=== PATIENT | female | born 1985 | race African-American/Black ===

== ENCOUNTER 2024-05-26 17:18 | Emergency (ER) | payer MEDICAID, SELFPAY ==
--- NOTE | ~2024-05-26 | US_ITS ---
EXAMINATION: US OBSTETRICAL ULTRASOUND CLINICAL INFORMATION: Bleeding, back pain. COMPARISON: None available. LMP: 04/05/2024. Gestational age by maternal dates is 7 weeks and 2 days. Estimated date of delivery by maternal dates is 01/10/2025. TECHNIQUE: Ultrasound of the maternal pelvis is performed using transabdominal and transvaginal transducers. Transvaginal imaging is performed due to inadequate visualization transabdominally. M-mode Doppler is also performed. FINDINGS: There is a single intrauterine gestational sac without a visible yolk sac nor pole. The gestational sac measures 0.4 cm corresponding to a sonographic age of 5 weeks. There is an approximately 1 cm subchorionic bleed adjacent to the sac. MATERNAL ADNEXA: The ovaries are normal in morphology. The right ovary measures 4.3 x 1.9 x 1.9 cm; there is a 1.8 x 0.9 x 1.3 cm cystic observation in the right ovary with homogeneous internal avascular debris. The left ovary measures 3.4 x 1.5 x 2 cm. No adnexal mass. Moderate degree of free fluid. US/US OB <= 14 weeks fetus IMPRESSION: Single intrauterine gestational sac with no visible yolk sac or pole. There is a significant discrepancy in between the calculated gestational age by ultrasound and last menstrual period corresponding to 5 weeks and 7 weeks and 2 days respectively. Recommend correlation with the accuracy of the menstrual dates; failure is not excluded. Quantitative hCG measurements and close attention on follow-up is advised. A small subchorionic bleed is visualized. There is also moderate amount of free fluid in the pelvis. A 1.8 cm cystic observation in the right ovary with homogenous avascular internal debris could represent a hemorrhagic cyst or endometrioma. Recommend follow-up with pelvic ultrasound in 4-6 weeks. Electronically signed by: Margaret Mata MD 05/26/2024 09:03 PM HERRERA
--- NOTE | 2024-05-26 17:55 | ED_ITS ---
HPI - Female Genitourinary General Chief complaint: Vaginal Bleeding Stated complaint: , ?water broke 2 months Time Seen by Provider: 05/26/24 21:22 Source: patient and family Mode of arrival: ambulatory Limitations: other (Creole speaking) History of Present Illness ED Provider: Dr. Jennifer Ghosh HPI Narrative: Interpretation done through hospital online- lumber handler service. Patient comes to emergency room complaining of intermittent vaginal bleeding for a few days. Patient states that she is currently a G9, . Patient denies any abdominal discomfort, no cramping. Patient states that when she urinates she sees a bit of blood. Patient denies any dysuria. Patient denies passing blood clots, denies heavy bleeding. Related Data Previous Rx's ?Medication ?Instructions ?Recorded nitrofurantoin 100 mg PO Q12H 7 days #14 caps 05/26/24 monohydrate/macrocrystals 100 mg capsule (Macrobid) vitamins no.42-folic acid 1 tab PO DAILY #90 tabs 05/26/24 1.4 mg chew tablet,IR - DR,biphase fluconazole 150 mg tablet 150 mg PO Q3D 2 doses #2 tabs 05/29/24 Allergies Allergy/AdvReac Type Severity Reaction Status Date / Time No Known Allergies Allergy Verified 05/26/24 18:01 Review of Systems 2 Review of Systems: Constitutional : No Weight loss, No Fever, No Chills, No Night Sweats, No Fatigue, No Malaise ENT/Mouth : No Hearing loss, No Ear Pain, No Nasal Congestion, No Sinus Pain, No Hoarseness, No sore throat, No Rhinorrhea, No Swallowing Difficulty Eyes: No Eye Pain, No Swelling, No Redness, No Foreign Body, No Discharge, No Vision Changes Cardiovascular : No Chest Pain, No SOB, No Dyspnea on Exertion, No Orthopnea, No Edema, No Palpitations Respiratory : No Cough, No Sputum, No Wheezing, No Smoke Exposure, No Dyspnea Gastrointestinal : No Nausea, No Vomiting, No Diarrhea, No Constipation, No abdominal Pain, No Hematochezia, No Melena Genitourinary : Complaining of vaginal bleeding, No Dysuria, No Urinary Frequency, No Hematuria, No Urinary Incontinence, No Urgency, No Flank Pain, No Urinary Flow Changes, No Hesitancy Musculoskeletal : No joint pain, No Myalgias, No Joint Swelling Skin : No Skin Lesions, No rash Neuro : No Weakness, No Numbness, No Paresthesias, No Loss of Consciousness, No Dizziness, No Headache Psych : No Anxiety/Panic, No Depression, No SI/HI/AH/VH, No Social Issues, Heme/Lymph: No Bruising, No Bleeding,No Lymphadenopathy Endocrine : No Polyuria, No Polydipsia, No Temperature Intolerance PMFSH Social History Social History Advance Directives: No Advance Directives Information Provided: Yes Physical Exam 2 Vital Signs: Vital Signs: Last Vital Signs Temp 98.5 F 05/26/24 22:39 Pulse 62 05/26/24 22:39 Resp 18 05/26/24 22:39 BP 134/94 H 05/26/24 22:39 Pulse Ox 100 05/26/24 22:39 O2 Del Method Room Air 05/26/24 22:39 BMI result Body Mass Index 34.3 Const: Other: Appearance: Alert. Oriented X3. No acute distress. Eyes: Pupils equal, round and reactive to light. ENT: Pharynx normal. Neck: Normal inspection. Neck supple. No lymph nodes noted. No crepitus CVS: Normal heart rate and rhythm. Pulses normal. Normal S1 and S2 Respiratory: No respiratory distress. Breath sounds normal. No Wheezing. No rales Abdomen: Soft and nontender. No rigidity. No distention. : Cervix is closed, there is a mild moderate amount of blood mixed with mucus. Skin: Skin warm and dry. Normal skin color. Normal skin turgor. Extremities: No lower extremity edema. No Lacerations. No Rash Neuro: Oriented X 3. No motor deficit. No sensory deficit. Moving all extremities. No slurred speech. CN 2 through 12 grossly intact Psych: calm, cooperative, normal affect Course Course Course Narrative: This is an RME performed by Jennifer England RICE DRIER: Additional HPI, ROS, PE not included below will be deferred to primary provider. Patient is a 39 year old female 2 months , LMP 04/05/24, (1 miscarriage, 1 , 6 living children) earlier today began with bright red/ pink bleeding this AM, intemittent spotting w/o clots - having lower back pain L>R. Has not had any ultrasound evaluation of thus far Plan: Serum labs, urinalysis, hCG, ultrasound Reevaluation(s) Reevaluation #1: 05/29/2024 10:04 --> Patient called and informed of positive yeast swab. Diflucan sent. Medical Decision Making Medical Decision Making MDM Narrative: -my interpretation of labs: Patient's white blood cell count 5.1, hemoglobin shows mild anemia 11.7, hematocrit 36, platelets 230. Chemistry does not show any significant abnormality. LFTs normal, hCG 1683, ABO B positive, urine positive for UTI. -I discussed with the patient that her cervix 6 closed but she has a mild bleed. Discussed with the patient that at this time the ultrasound shows products of conception but not a pole, could be secondary to this being a very early versus failure, she will need an ultrasound in about a week to 2 weeks. However, patient needs to come back in 48 hours to get blood work done to measure beta hCG. -patient states that she has never been on vitamins, even on prior pregnancies. Patient is willing to start them for this . -patient was given information for our OBGYN. -there are no obvious signs of STDs on physical exam. Serologies were sent to the lab , most likely they will be available for patient's OBGYN visit Differential Diagnosis Differential Diagnoses: The differential diagnosis associated with the presentation includes (Ectopic , failure, incomplete , threatened ) Lab Data MDM Lab Attestation statement: I reviewed the patient's lab results. 05/26/24 18:22 05/26/24 18:22 Labs: Lab Results 05/26/24 05/26/24 05/26/24 Range/Units 18:22 21:02 22:10 WBC 5.1 (4.8-10.8) X10*3/uL RBC 4.39 (4.20-5.50) X10*6/uL Hgb 11.7 L (12.0-16.0) g/dl Hct 36.0 L (37.0-47.0) % MCV 82.0 (80.0-98.0) fL MCH 26.7 L (27.0-33.0) pg MCHC 32.5 (31.0-35.0) g/dl RDW 13.1 (11.0-16.0) % Plt Count 230 (160-400) X10*3/uL MPV 9.0 L (9.4-12.3) fL Immature Gran % (Auto) 0.2 (0.0-0.4) % Neut % (Auto) 58.3 (45-73) % Lymph % (Auto) 32.5 (20-40) % [place] % (Auto) 7.6 (2-11) % Eos % (Auto) 0.8 (0-4) % Baso % (Auto) 0.6 (0-2) % Lymph # (Auto) 1.7 (1.2-4.9) X10*3/uL [place] # (Auto) 0.4 (0.1-1.2) X10*3/uL Eos # (Auto) 0.0 (0.0-0.4) X10*3/uL Baso # (Auto) 0.0 (0.0-0.2) X10*3/uL Abs Immat Gran (auto) 0.01 (0.00-0.03) X10*3/uL Absolute Neuts (auto) 3.0 (2.0-8.3) x10*3/uL Absolute Nucleated RBC 0.000 (0.0-0.012) X10*3/uL Nucleated RBC % (auto) 0.0 (0.0-0.2) /100WBC Sodium 137 (135-145) mmol/L Potassium 3.8 (3.3-5.1) mmol/L Chloride 106 (96-108) mmol/L Carbon Dioxide 29 (22-29) mmol/L Anion Gap 6 L (12-20) BUN 8 L (9-16) mg/dL Creatinine 0.72 (0.5-1.4) mg/dL Estim Creat Clear Calc 92.1 Estimated GFR > 60 Random Glucose 103 (60-115) mg/dL Calcium 8.9 (8.4-10.2) mg/dL Total Bilirubin 0.4 (0.0-1.0) mg/dL AST 19 (5-31) U/L ALT 19 (0-31) U/L Alkaline Phosphatase 84 (39-117) U/L Total Protein 7.0 (6.5-8.0) g/dL Albumin 3.8 (3.5-5.0) g/dL Beta HCG, Quant 1683 mIU/mL Urine Color Yellow Urine Appearance Clear Urine pH 6.5 (5.0-9.0) Ur Specific [place] 1.015 (1.005-1.025) Urine Protein Negative (Neg-Trace) mg/dL Urine Glucose (UA) Negative (Negative) mg/dL Urine Ketones Negative (Negative) mg/dL Urine Blood Large (3+) H (Negative) Urine Nitrite Negative (Negative) Ur Leukocyte Esterase Small (1+) H (Negative) Urine RBC >20 H (0-2) /HPF Urine WBC 6-10 H (0-5) /HPF Ur Squamous Epith Cells 0-2 (0-2) /HPF Urine Bacteria None Seen (None Seen) Hyaline Casts 0-2 (0-2) /LPF Chlam trachomat DNA PCR NOT DETECTED (Not Detect.) N.gonorrhoeae DNA (PCR) NOT DETECTED (Not Detect.) T. vaginalis (PCR) NOT DETECTED (Not Detect) Bact Vaginosis (PCR) NEGATIVE (Negative) C. krusei/glabrata (PCR) NOT DETECTED (Not Detect) Sonia group (PCR) DETECTED A (Not Detect) Blood Type B Positive Independent Interpretation I performed an independent interpretation of an: Ultrasound Radiology Impression Discussion of test interpretation with radiology: I have reviewed the radiologist's reading. Radiologist Impression: MPRESSION: Single intrauterine gestational sac with no visible yolk sac or pole. There is a significant discrepancy in between the calculated gestational age by ultrasound and last menstrual period corresponding to 5 weeks and 7 weeks and 2 days respectively. Recommend correlation with the accuracy of the menstrual dates; failure is not excluded. Quantitative hCG measurements and close attention on follow-up is advised. A small subchorionic bleed is visualized. There is also moderate amount of free fluid in the pelvis. A 1.8 cm cystic observation in the right ovary with homogenous avascular internal debris could represent a hemorrhagic cyst or endometrioma. Recommend follow-up with pelvic ultrasound in 4-6 weeks. Independent Historian Clinical information obtained from an independent historian. History obtained from or confirmed by: Spouse Critical Care Time Critical Care Time Critical Care Time: Yes Total Critical Care Time: 45 Attestation: I have personally provided critical care time. Time includes review of lab data, radiology results, discussion with consultants, and monitoring for potential decompensation. Intervention performed as documented. Discharge Plan Discharge Clinical Impression: , threatened, UTI (urinary tract infection), Vaginal yeast infection Patient Disposition: Home, Self-Care Instructions: Threatened Miscarriage (ED), Yeast Infection (ED), Urinary Tract Infection in (ED) Additional Instructions: If you experience any heavy vaginal bleeding, significant abdominal pain or cramping, please return to the emergency room. Please return on Wednesday morning for blood work, please go through the main entrance and they will show you with the lab is. Please make sure to call the OBGYN office to schedule an appointment. Her medications were sent to [facility] in [address] [place] [address]. Prescriptions: New nitrofurantoin monohyd/m-cryst [Macrobid] 100 mg capsule 100 mg PO Q12H 7 Days Qty: 14 0RF Rx Instructions: must administer with a meal/food comb no.42-folic acid 1.4 mg tablet,chew,IR - DR,biphase 1 tab PO DAILY Qty: 90 1RF fluconazole 150 mg tablet 150 mg PO Q3D Qty: 2 0RF Interventions: ED Discharge Assessment Last Done: 05/26/24 22:39 Discharge Date/Time: 05/26/24 22:39 Print Language: Benjy Curran
[2024-05-26 17:56] VITALS: BP 127/73; PULSE 70; RESP 16; TEMP 36.4; O2SAT 100; BMI 34.3
[2024-05-26 18:27] LABS: MANUAL DIFF FLAG NO
[2024-05-26 18:35] LABS: Basophils Percent Auto 0.6 % (0-2); Eosinophils Percent Auto 0.8 % (0-4); Hemoglobin 11.7 g/dl (12.0-16.0); Imm Gran Abs Auto 0.01 X10*3/uL (0.00-0.03); Imm Gran Pct Auto 0.2 % (0.0-0.4); Lymphocytes Absolute Auto 1.7 X10*3/uL (1.2-4.9); Lymphocytes Percent Auto 32.5 % (20-40); Mean Corpuscular HGB Conc 32.5 g/dl (31.0-35.0); Mean Corpuscular Hemoglobin 26.7 pg (27.0-33.0); Monocytes Absolute Auto 0.4 X10*3/uL (0.1-1.2); Monocytes Percent Auto 7.6 % (2-11); Neutrophils Percent Auto 58.3 % (45-73); Platelet Count 230 X10*3/uL (160-400); Red Blood Count 4.39 X10*6/uL (4.20-5.50); Red Cell Distribution Width 13.1 % (11.0-16.0); White Blood Count 5.1 X10*3/uL (4.8-10.8)
--- NOTE | 2024-05-26 18:49 | PC.NURSE ---
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
[2024-05-26 18:56] LABS: Alanine Aminotransferase 19 U/L (0-31); Albumin Level 3.8 g/dL (3.5-5.0); Alkaline Phosphatase 84 U/L (39-117); Anion Gap 6 (12-20); Aspartate Amino Transferase 19 U/L (5-31); Bilirubin Total 0.4 mg/dL (0.0-1.0); Blood Urea Nitrogen 8 mg/dL (9-16); Calcium 8.9 mg/dL (8.4-10.2); Carbon Dioxide 29 mmol/L (22-29); Chloride 106 mmol/L (96-108); Creatinine Clr Calc Pharmacy 92.1; Estimated Glomerular Filt Rate > 60; Glucose Random 103 mg/dL (60-115); Potassium 3.8 mmol/L (3.3-5.1); Sodium 137 mmol/L (135-145)
[2024-05-26 18:57] LABS: HCG Quantitative 1683 mIU/mL
[2024-05-26 21:17] LABS: Appearance Urine Clear; Color Urine Yellow; Glucose Urine UA Negative (Negative); Leukocyte Esterase Urine Small (1+) (Negative); Nitrite Urine Negative (Negative); PH 6.5 (5.0-9.0); Specific Gravity - Urine 1.015 (1.005-1.025); UMIC TRIGGER UACC YES; Urine Blood Large (3+) (Negative); Urine Ketones Negative (Negative); Urine Protein Negative (Neg-Trace)
[2024-05-26 21:32] LABS: Bacteria Urine None Seen (None Seen); Hyaline Casts Urine 0-2 /LPF (0-2); RBC Urine >20 /HPF (0-2); Squamous Epithelial Cell Urine 0-2 /HPF (0-2); UACC Culture Trigger YES
[2024-05-26 22:38] VITALS: BP 134/94; PULSE 62; RESP 18; TEMP 36.9; O2SAT 100
[2024-05-26 22:39] VITALS: BP 134/94; PULSE 62; RESP 18; TEMP 36.9; O2SAT 100
[2024-05-27 12:24] LABS: Bacterial Vaginosis PCR NEGATIVE (Negative); Candida Group PCR DETECTED (Not Detect); Candida glab krusei PCR NOT DETECTED (Not Detect); Trichomonas vaginalis PCR NOT DETECTED (Not Detect)
[2024-05-27 13:42] LABS: CT PCR NOT DETECTED (Not Detect.); NG PCR NOT DETECTED (Not Detect.)
== END 2024-05-26 22:39 | disposition home or self-care (01) ==
PROVIDERS: Nurse Practitioner Family; Emergency Provider Emergency Medicine
DX: O20.0 Threatened abortion (principal); O98.811 Other maternal infectious and parasitic diseases complicating pregnancy, first trimester; O23.41 Unspecified infection of urinary tract in pregnancy, first trimester; N39.0 Urinary tract infection, site not specified; O99.011 Anemia complicating pregnancy, first trimester
CPT/HCPCS: 0352U; 36415; 76801; 80053; 81001; 84702; 85025; 86900; 86901; 87086; 87147; 87491; 87591; 99283; 99284

== ENCOUNTER 2024-06-02 12:25 | Emergency (ER) | payer MEDICAID, SELFPAY ==
--- NOTE | ~2024-06-02 | US_ITS ---
EXAMINATION: US OBSTETRICAL ULTRASOUND CLINICAL INFORMATION: Vaginal bleeding COMPARISON: 05/26/2024 TECHNIQUE: Transabdominal endovaginal pelvic ultrasound FINDINGS: Previously noted intrauterine is no longer visualized. No evidence of retained products of conception or any focal lesion. Both ovaries appear normal unchanged from previous. Small amount of free fluid in the cul-de-sac. The uterus measures 8.9 x 5.1 x 6.4 cm. US/US OB pelvic and transvaginal IMPRESSION: No evidence for any viable . Findings consistent with missed AB. Electronically signed by: Colin Dukes MD 06/02/2024 06:29 PM EST
--- NOTE | 2024-06-02 12:39 | ED.GENADULT ---
HPI - General Adult General Chief complaint: Vaginal Bleeding Stated complaint: vaginal bleeding quest Time Seen by Provider: 06/02/24 13:02 Source: patient, RN notes reviewed and old records reviewed Mode of arrival: ambulatory History of Present Illness ED Provider: Lucila Waters PA-C HPI narrative: 39-year-old female, Estonian Creole speaking, (1 miscarriage, 1 , 6 living children), presenting to the ED complaining of persistent/ worsening bright red vaginal bleeding with clots x5 days. Patient was evaluated in our ED on 05/26/2024 for similar symptoms, had labs showing hCG of 1683, and ultrasound showing early vs failure. patient was supposed to have outpatient HCG 05/29 however did not have a ride to facility. Denies pain, dysuria, nausea/vomiting. Patient is B positive Related Data Previous Rx's ?Medication ?Instructions ?Recorded nitrofurantoin 100 mg PO Q12H 7 days #14 caps 05/26/24 monohydrate/macrocrystals 100 mg capsule (Macrobid) vitamins no.42-folic acid 1 tab PO DAILY #90 tabs 05/26/24 1.4 mg chew tablet,IR - DR,biphase fluconazole 150 mg tablet 150 mg PO Q3D 2 doses #2 tabs 05/29/24 Allergies Allergy/AdvReac Type Severity Reaction Status Date / Time No Known Allergies Allergy Verified 06/02/24 12:47 Review of Systems Review of Systems: Yes all other systems are reviewed and are negative Constitutional: Constitutional: Reports as per [facility] Past Medical History Attestation statement: The following information was validated with the patient. Source: old records reviewed Social History Social History Smoked in Last 30 Days: No Use of substances other than those prescribed or required for medical reasons: No Advance Directives: No Advance Directives Information Provided: Yes Do you have a plan to hurt others: No Plan Physical Exam ED Vital Signs: Vital Signs - 24 hr 06/02/24 12:44 06/02/24 14:17 06/02/24 16:46 Temperature 98.3 F 98.5 F 98 F Pulse Rate 68 58 55 Respiratory Rate 16 16 16 Blood Pressure 120/73 104/72 122/71 Pulse Oximetry 100 100 99 Oxygen Delivery Method Room Air Room Air Room Air BMI result Body Mass Index 28.8 Const General: cooperative, healthy appearing and no acute distress Orientation/consciousness: patient oriented x3 Limitations: no limitations HENMT Head: Yes normal to inspection and Yes atraumatic Ears: hearing grossly normal bilaterally General nose exam: Normal external nose present Face and sinus: Yes normal facial exam Eyes General: appearance normal, both eyes and all related structures EOM: EOMs intact bilaterally Neck Neck: Yes normal visual inspection and Yes no meningeal signs Resp Effort & Inspection: normal respiratory effort and no respiratory distress Auscultation: clear to auscultation bilaterally Cardio Rate: regular rate Heart sounds: S1 normal heart sound present and S2 normal heart sound present GI Inspection: Yes normal to inspection Palpation (GI): Soft to palpation, nontender, no guarding and not rigid Skin Rashes: no rashes Wounds: no wounds Neuro General: patient oriented x3, tone normal and no meningeal signs Cranial nerves: Yes CN's II-XII intact bilaterally Gait exam (Neuro): Normal gait present Extrem General: Yes normal to inspection Course Course Course Narrative: RME, this is a rapid medical exam performed by Osman Sr please refer to primary provider for complete H&P- 39 year old female presents for evaluation of vaginal bleeding in . She was seen here on 05/26/24 with an HCG of 1683, and there was no pole on ultrasound. There was concern for threatened vs missed . She was given outpatient order form for serum hcg and repeat ultrasound for 05/29/24 but was unable to return at that time. She still endorses vaginal bleeding but denies pain. She is blood type A+. She is G9, P6, A2 - leukopenic to 3.2. H/H stable. -1323-- H/H with drop from 1683 (on 05/26) to 759 today (06/02) - UA with blood, not infected US OB pelvic and transvaginal IMPRESSION: No evidence for any viable . Findings consistent with missed AB. - Dr. Xie consulted > on pelvic exam clots/ products conception noted coming from cervix. No active bleeding. Removed without complication by OBGYN Dr. Xie. No masses or tenderness. >> Exam consistent with complete Results discussed with patient with patient Creole in house counsel incomplete precautions including pelvic cramping/ bleeding or fever to return to the ED immediately. Patient will be contacted by madyson Xie's office on Wednesday to arrange for follow-up. Discussed worrisome signs and symptoms and strict return precautions, and when to return to the emergency department. They verbalized understanding and feel safe for discharge at this time. Medical Decision Making Medical Decision Making [facility] Narrative: 39-year-old female, Estonian Creole speaking, (1 miscarriage, 1 , 6 living children), presenting to the ED complaining of persistent/ worsening bright red vaginal bleeding with clots x5 days. On exam vital signs stable, NAD, nontoxic appearing, abdomen soft/nontender, on pelvic exam Concern for early vs failure vs threatened or incomplete /missed vs ectopic . Lower suspicion for ovarian torsion, STI, TOA Plan: Labs, UA, ultrasound, re-evaluate Please refer to course for remaining clinical decision making, interpretation of labs/imaging results, and discussions with consultants and/or family members. Differential Diagnosis Differential Diagnoses: The differential diagnosis associated with the presentation includes As above Admission/Observation Consideration of admission/observation: Escalation of care including admission/observation considered Consult Healthcare Provider Management of the patient was discussed with: Generator Operator Straight Bevel Gear (OBGYN Dr. Xie) Lab Data [facility] Lab Attestation statement: I reviewed the patient's lab results. 06/02/24 12:48 06/02/24 12:48 Labs: Lab Results 06/02/24 06/02/24 Range/Units 12:48 13:05 WBC 3.2 L (4.8-10.8) X10*3/uL RBC 4.32 (4.20-5.50) X10*6/uL Hgb 11.5 L (12.0-16.0) g/dl Hct 35.8 L (37.0-47.0) % MCV 82.9 (80.0-98.0) fL MCH 26.6 L (27.0-33.0) pg MCHC 32.1 (31.0-35.0) g/dl RDW 13.1 (11.0-16.0) % Plt Count 231 (160-400) X10*3/uL MPV 9.0 L (9.4-12.3) fL Immature Gran % (Auto) 0.3 (0.0-0.4) % Neut % (Auto) 45.5 (45-73) % Lymph % (Auto) 45.3 H (20-40) % [place] % (Auto) 7.1 (2-11) % Eos % (Auto) 0.9 (0-4) % Baso % (Auto) 0.9 (0-2) % Lymph # (Auto) 1.5 (1.2-4.9) X10*3/uL [place] # (Auto) 0.2 (0.1-1.2) X10*3/uL Eos # (Auto) 0.0 (0.0-0.4) X10*3/uL Baso # (Auto) 0.0 (0.0-0.2) X10*3/uL Abs Immat Gran (auto) 0.01 (0.00-0.03) X10*3/uL Absolute Neuts (auto) 1.5 L (2.0-8.3) x10*3/uL Absolute Nucleated RBC 0.000 (0.0-0.012) X10*3/uL Nucleated RBC % (auto) 0.0 (0.0-0.2) /100WBC Sodium 142 (135-145) mmol/L Potassium 3.6 (3.3-5.1) mmol/L Chloride 109 H (96-108) mmol/L Carbon Dioxide 28 (22-29) mmol/L Anion Gap 9 L (12-20) BUN 7 L (9-16) mg/dL Creatinine 0.67 (0.5-1.4) mg/dL Estim Creat Clear Calc 110.4 Estimated GFR > 60 Random Glucose 89 (60-115) mg/dL Calcium 8.4 (8.4-10.2) mg/dL Total Bilirubin 0.8 (0.0-1.0) mg/dL AST 21 (5-31) U/L ALT 12 (0-31) U/L Alkaline Phosphatase 76 (39-117) U/L Total Protein 6.6 (6.5-8.0) g/dL Albumin 3.7 (3.5-5.0) g/dL Lipase 27 (8-78) U/L Beta HCG, Quant 759 mIU/mL Urine Color Yellow Urine Appearance Clear Urine pH 7.0 (5.0-9.0) Ur Specific [place] 1.015 (1.005-1.025) Urine Protein Negative (Neg-Trace) mg/dL Urine Glucose (UA) Negative (Negative) mg/dL Urine Ketones Negative (Negative) mg/dL Urine Blood Large (3+) H (Negative) Urine Nitrite Negative (Negative) Ur Leukocyte Esterase Trace H (Negative) Urine RBC >20 H (0-2) /HPF Urine WBC 0-5 (0-5) /HPF Ur Squamous Epith Cells 3-5 (0-2) /HPF Urine Bacteria None Seen (None Seen) Hyaline Casts 0-2 (0-2) /LPF Independent Interpretation I performed an independent interpretation of an: Ultrasound Radiology Impression Discussion of test interpretation with radiology: I have reviewed the radiologist's reading. External Record Review External record reviewed: Inpatient record, Office record, Outpatient record, Prior outpatient labs, Prior outpatient radiology, Primary care record and Outside ED record Tests considered The following testing was considered but not selected: As above Chronic Conditions Patient?s care impacted by: Other Social Determinants Patient?s care significantly limited by Social Determinants of Health including: Other Social Determinant of Health Discharge Plan Discharge Clinical Impression: Complete Patient Disposition: Home, Self-Care Instructions: Miscarriage (ED) Additional Instructions: your hCG dropped today ultrasound is consistent with a missed , there is no viable YOU NEED TO FOLLOW-UP IN OBGYN OFFICE ON WEDNESDAY, THEY WILL CONTACT YOU. YOU WILL NEED REPEAT BLOOD WORK TO MONITOR LEVELS UNTIL THEY ARE 0. If you have any abdominal /pelvic cramping, pain, bleeding, or fever return to the ED immediately Prescriptions: No Action nitrofurantoin monohyd/m-cryst [Macrobid] 100 mg capsule 100 mg PO Q12H 7 Days Qty: 14 0RF Rx Instructions: must administer with a meal/food comb no.42-folic acid 1.4 mg tablet,chew,IR - DR,biphase 1 tab PO DAILY Qty: 90 1RF fluconazole 150 mg tablet 150 mg PO Q3D Qty: 2 0RF Referrals: [facility] [place] Women's Services [Provider Group] - 2 days Print Language: Benjy Curran
[2024-06-02 12:44] VITALS: BP 120/73; PULSE 68; RESP 16; TEMP 36.8; O2SAT 100; BMI 28.8
[2024-06-02 12:51] LABS: MANUAL DIFF FLAG NO
--- NOTE | 2024-06-02 12:56 | MHC.EDTECH ---
Urine cup and wipes provided to patient with instructions on clean catch urine. Patient aware to provide sample as soon as possible.
[2024-06-02 12:59] LABS: Basophils Percent Auto 0.9 % (0-2); Eosinophils Percent Auto 0.9 % (0-4); Hematocrit 35.8 % (37.0-47.0); Hemoglobin 11.5 g/dl (12.0-16.0); Imm Gran Abs Auto 0.01 X10*3/uL (0.00-0.03); Imm Gran Pct Auto 0.3 % (0.0-0.4); Lymphocytes Absolute Auto 1.5 X10*3/uL (1.2-4.9); Lymphocytes Percent Auto 45.3 % (20-40); Mean Corpuscular HGB Conc 32.1 g/dl (31.0-35.0); Mean Corpuscular Hemoglobin 26.6 pg (27.0-33.0); Mean Corpuscular Volume 82.9 fL (80.0-98.0); Monocytes Absolute Auto 0.2 X10*3/uL (0.1-1.2); Monocytes Percent Auto 7.1 % (2-11); Neutrophils Absolute Auto 1.5 x10*3/uL (2.0-8.3); Neutrophils Percent Auto 45.5 % (45-73); Platelet Count 231 X10*3/uL (160-400); Red Blood Count 4.32 X10*6/uL (4.20-5.50); Red Cell Distribution Width 13.1 % (11.0-16.0); White Blood Count 3.2 X10*3/uL (4.8-10.8)
[2024-06-02 13:16] LABS: Appearance Urine Clear; Color Urine Yellow; Glucose Urine UA Negative (Negative); Leukocyte Esterase Urine Trace (Negative); Nitrite Urine Negative (Negative); Specific Gravity - Urine 1.015 (1.005-1.025); UMIC TRIGGER UACC YES; Urine Blood Large (3+) (Negative); Urine Ketones Negative (Negative); Urine Protein Negative (Neg-Trace)
[2024-06-02 13:17] LABS: Alanine Aminotransferase 12 U/L (0-31); Albumin Level 3.7 g/dL (3.5-5.0); Alkaline Phosphatase 76 U/L (39-117); Anion Gap 9 (12-20); Aspartate Amino Transferase 21 U/L (5-31); Bilirubin Total 0.8 mg/dL (0.0-1.0); Blood Urea Nitrogen 7 mg/dL (9-16); Calcium 8.4 mg/dL (8.4-10.2); Carbon Dioxide 28 mmol/L (22-29); Chloride 109 mmol/L (96-108); Creatinine Clr Calc Pharmacy 110.4; Estimated Glomerular Filt Rate > 60; Glucose Random 89 mg/dL (60-115); HCG Quantitative 759 mIU/mL; Lipase 27 U/L (8-78); Potassium 3.6 mmol/L (3.3-5.1); Sodium 142 mmol/L (135-145); Total Protein 6.6 g/dL (6.5-8.0)
[2024-06-02 13:21] LABS: Bacteria Urine None Seen (None Seen); Hyaline Casts Urine 0-2 /LPF (0-2); RBC Urine >20 /HPF (0-2); WBC Urine 0-5 /HPF (0-5)
--- NOTE | 2024-06-02 13:28 | PC.NURSE ---
pt states that she has been passing red blood clots. She says they stopped this morning but then resumed. US ordered
[2024-06-02 14:17] VITALS: BP 104/72; PULSE 58; RESP 16; TEMP 36.9; O2SAT 100
[2024-06-02 16:46] VITALS: BP 122/71; PULSE 55; RESP 16; TEMP 36.6; O2SAT 99
--- NOTE | 2024-06-02 18:13 | P.CONOB_ITS ---
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 Patient was evaluated in our ED on 05/26/2024 for similar symptoms, had labs showing hCG of 1683, and ultrasound showing early vs failure. patient was supposed to have outpatient HCG 05/29 however did not have a ride to facility. in the emergency room today hCG was repeated was down to 759 H&H =11.5/35.8 blood type B positive cc:: CC: OB [facility] Social History Social History Smoked in Last 30 Days: No Use of substances other than those prescribed or required for medical reasons: No Advance Directives: No Advance Directives Information Provided: Yes Do you have a plan to hurt others: No Plan Meds Allergies Allergy/AdvReac Type Severity Reaction Status Date / Time No Known Allergies Allergy Verified 06/02/24 12:47 VACUUM METALIZING SUPERVISOR Physical Exam Vitals Vital signs: Temp Pulse Resp BP Pulse Ox O2 Del Method 98 F 55 16 122/71 99 Room Air 06/02/24 16:46 06/02/24 16:46 06/02/24 16:46 06/02/24 16:46 06/02/24 16:46 06/02/24 16:46 BMI result Body Mass Index 28.8 Female Genitalia (Pelvic) Vagina: Nontender Uterus: Normal size Adnexa/Parametria: Adnexal Tenderness: None, Adnexal Mass: None, Parametrial Tenderness: None and Parametrial Mass: None Additional Comments: tissues protruding through the cervix pulled out with a ring forceps, no bleeding and no pelvic cramping followed VACUUM METALIZING SUPERVISOR - Results Labs 06/02/24 12:48 06/02/24 12:48 Labs: Short CBC 06/02/24 Range/Units 12:48 WBC 3.2 L (4.8-10.8) X10*3/uL Hgb 11.5 L (12.0-16.0) g/dl Hct 35.8 L (37.0-47.0) % Plt Count 231 (160-400) X10*3/uL BMP 11/22/24 12:48 Sodium 142 Potassium 3.6 Chloride 109 H Carbon Dioxide 28 BUN 7 L Creatinine 0.67 Calcium 8.4 Liver Function 06/02/24 Range/Units 12:48 Total Bilirubin 0.8 (0.0-1.0) mg/dL AST 21 (5-31) U/L ALT 12 (0-31) U/L Alkaline Phosphatase 76 (39-117) U/L Albumin 3.7 (3.5-5.0) g/dL Urine 06/02/24 Range/Units 13:05 Urine Color Yellow Urine Appearance Clear Urine pH 7.0 (5.0-9.0) Ur Specific [place] 1.015 (1.005-1.025) Urine Protein Negative (Neg-Trace) mg/dL Urine Glucose (UA) Negative (Negative) mg/dL Imaging US - abdomen: Radiologist's impression: ITS Impressions Pelvic/Transvag US 06/02/24 14:20 IMPRESSION: No evidence for any viable . Findings consistent with missed AB. Electronically signed by: Colin Dukes MD 06/02/2024 06:29 PM [facility] [place] Assessment and Plan (1) Complete : Status: Acute GC/CT was BV panel and Trichomonas collected, tissues from the cervical os sent to pathology. Discussed with the patient pelvic exam finding, her clinical situation pointing towards complete . Signs and symptoms of incomplete were discussed with the patient, instruction given to the patient to come back to the emergency room in case of pelvic cramping and or bleeding, fever above 100.4 And to follow-up in the office within 2 days will repeat hCG to be repeated till down to 0, non levels. All questions answered, the patient verbalized understanding
[2024-06-02 18:36] VITALS: BP 130/85; PULSE 67; RESP 16; TEMP 36.8; O2SAT 100
--- NOTE | 2024-06-02 18:40 | PC.NURSE ---
pelvic exam perform by Lucila VALENTE and Dr. Xie with this RN.products of conception were removed and ordered to be sent to the lab. Dr. Xie explained findings and reasons to seek prompt medical attention and well as importance of follow up in his office, patient states she understands. per Dr. Xie no further bleeding. patient tolerated exam well. Estonian Creole motor vehicle parts interpreter was utilized during exam and for all instructions. friend present with patient
--- NOTE | 2024-06-02 19:52 | PC.NURSE ---
products of conception were labeled and brought to lab by this RN and handed directly to staff.
[2024-06-02 19:54] VITALS: BP 109/83; PULSE 74; RESP 16; TEMP 36.8; O2SAT 98
[2024-06-03 05:42] LABS: CT PCR NOT DETECTED (Not Detect.); NG PCR NOT DETECTED (Not Detect.)
[2024-06-03 12:42] LABS: Bacterial Vaginosis PCR NEGATIVE (Negative); Candida Group PCR NOT DETECTED (Not Detect); Candida glab krusei PCR NOT DETECTED (Not Detect); Trichomonas vaginalis PCR NOT DETECTED (Not Detect)
== END 2024-06-02 19:55 | disposition home or self-care (01) ==
PROVIDERS: Obstetrics & Gynecology; Physician Assistant; Emergency Provider Emergency Medicine
DX: O03.9 Complete or unspecified spontaneous abortion without complication (principal)
CPT/HCPCS: 0352U; 36415; 76801; 76817; 80053; 81001; 83690; 84702; 85025; 87491; 87591; 88305; 99284

== ENCOUNTER → 2024-06-02 13:21 | Outpatient (BNV) | payer MEDICAID, SELFPAY | PROVIDERS: Emergency Provider Emergency Medicine; Visit Provider Obstetrics & Gynecology | DX: O03.9 Complete or unspecified spontaneous abortion without complication (principal) | CPT/HCPCS: 99283 ==

== ENCOUNTER 2024-06-06 09:07 | Outpatient (REF) | payer MEDICAID, SELFPAY ==
[2024-06-06 11:19] LABS: HCG Quantitative 234 mIU/mL
== END 2024-06-06 09:08 | disposition home or self-care (01) ==
LOC: HO.LAB 09:07
PROVIDERS: Visit Provider Obstetrics & Gynecology
DX: O03.9 Complete or unspecified spontaneous abortion without complication (principal)
CPT/HCPCS: 36415; 84702; 99212

== ENCOUNTER 2024-06-06 10:29 | Outpatient (AMB) | payer MEDICAID, SELFPAY ==
--- NOTE | 2024-06-06 10:33 | A.OFFVIS_ITS ---
Intake Visit Reasons: HCG follow up Clip Loading Machine Feeder Required: Yes Clip Loading Machine Feeder Language: Benjy Curran Clip Loading Machine Feeder Services: Clip Loading Machine Feeder Present ([employer]) Clip Loading Machine Feeder Name: Salvador # [id number] Allergies No Known Allergies Allergy (Verified 06/02/24 12:47) HPI Comments Details: The patient is presenting for ED follow-up. The patient went to the emergency room 4 days ago with heavy vaginal bleeding associated with passage of blood clots and pelvic cramping. She was evaluated in the ED on 05/26/2024 for similar symptoms, had labs showing hCG of 1683, and ultrasound showing early vs failure. The patient was supposed to have outpatient HCG 05/29 however did not have a ride to facility. In the emergency room on 06/02 hCG was repeated was down to 759 On pelvic exam tissues was protruding out of the cervix, were pulled out using ring forceps. The patient did well afterwards without any pelvic cramping and or bleeding. Since then the patient has been doing well with no additional bleeding or cramping. HCG done [id number] Blood type B positive GC/CT negative BV panel , trich neg path is still pending Review of Systems Const All systems reviewed & are unremarkable except as noted in HPI and below Reports as per HPI and Reports no additional complaints GI Reports no additional complaints Reports no additional complaints Physical Exam GI Palpation (GI): Soft to palpation and nontender Assessment & Plan Assessment & Plan (1) Complete : Code(s): O03.9 - Complete or unspecified spontaneous without complication Category: Medical Plan: Discussed with the patient's signs and symptoms of incomplete , instructions given the patient to call in case of pelvic cramping and or bleeding, fever above 100.4. HCG to be repeated in 1 week (order placed) and follow it down to non level. Instructions given the patient to have hCG drawn and to schedule hCG follow-up appointment Offered different method of control but the patient declined at the moment. All questions answered, the patient verbalized understanding Orders: Orders HCG Quantitative Today O03.9 - Complete or unspecified spontaneous without complication HCG Quantitative 1 Week O03.9 - Complete or unspecified spontaneous wi thout complication Coding Level of Care Code Est Pt Level 3 (06251) Diagnoses Complete O03.9
== END 2024-06-06 11:32 | disposition home or self-care (01) ==
LOC: HO.HWS 10:29
PROVIDERS: Visit Provider Obstetrics & Gynecology
DX: O03.9 Complete or unspecified spontaneous abortion without complication (principal)
CPT/HCPCS: 99213

== ENCOUNTER 2024-06-13 09:11 | Outpatient (REF) | payer MEDICAID, SELFPAY ==
[2024-06-13 10:01] LABS: HCG Quantitative 10 mIU/mL
== END 2024-06-13 09:12 | disposition home or self-care (01) ==
LOC: HO.LAB 09:11
PROVIDERS: Visit Provider Obstetrics & Gynecology
DX: O03.9 Complete or unspecified spontaneous abortion without complication (principal)
CPT/HCPCS: 36415; 84702; 99212

== ENCOUNTER 2024-06-13 10:34 | Outpatient (AMB) | payer MEDICAID, SELFPAY ==
--- NOTE | 2024-06-13 10:50 | MHC.OFFVIS ---
Vital Signs 06/13/24 10:55 Height 5 ft 1 in Weight 170 lb BMI 32.1 BP 118/70 Intake Visit Reasons: HCG follow up Disk And Tape Machine Tender Required: Yes Disk And Tape Machine Tender Language: [place]oleman Curran Disk And Tape Machine Tender Services: Disk And Tape Machine Tender Present ([employer]) Disk And Tape Machine Tender Name: Maxx #[id number] Information Interpreted: non-clinical & clinical Accompanied by: Self / Same As Patient Allergies No Known Allergies Allergy (Verified 06/13/24 10:59) HPI Comments Details: Presenting for follow-up with no complaints no vaginal bleeding pelvic cramping or any other concerns. HCG done today's down to 10 from 234 Review of Systems Const All systems reviewed & are unremarkable except as noted in HPI and below Reports as per HPI and Reports no additional complaints GI Reports no additional complaints Reports no additional complaints Assessment & Plan Assessment & Plan (1) Complete : Code(s): O03.9 - Complete or unspecified spontaneous without complication Category: Medical Plan: Will repeat hCG in 1-2 weeks to follow-up down to 0. Signs and symptoms of incomplete were discussed with the patient. Instructions given the patient to call in case of pelvic cramping and or heavy vaginal bleeding and to schedule a follow-up apt in 2cwks and an annual exam appointment in few weeks. All questions answered, the patient verbalized understanding. Orders: Orders HCG Quantitative Today O03.9 - Complete or unspecified spontaneous without complication HCG Quantitative 2 Weeks O03.9 - Complete or unspecified spontaneous without complication Medications: Discontinued nitrofurantoin monohyd/m-cryst 100 mg (Macrobid) must administer with a meal/food Discontinued Reason: Patient Completed Course 100 mg PO Q12H 7 days 14 caps 0RF fluconazole Discontinued Reason: Patient Completed Course 150 mg PO Q3D 2 tabs 0RF Coding Level of Care Code Est Pt Level 3 (40547) Diagnoses Complete O03.9
[2024-06-13 10:55] VITALS: BP 118/70; BMI 32.1
== END 2024-06-13 11:18 | disposition home or self-care (01) ==
LOC: HO.HWS 10:34
PROVIDERS: Visit Provider Obstetrics & Gynecology
DX: O03.9 Complete or unspecified spontaneous abortion without complication (principal)
CPT/HCPCS: 99213

== ENCOUNTER 2024-06-28 09:50 | Outpatient (REF) | payer MEDICAID, SELFPAY ==
[2024-06-28 11:31] LABS: HCG Quantitative < 2 mIU/mL
== END 2024-06-28 09:51 | disposition home or self-care (01) ==
LOC: HO.LAB 09:50
PROVIDERS: Visit Provider Obstetrics & Gynecology
DX: O03.9 Complete or unspecified spontaneous abortion without complication (principal)
CPT/HCPCS: 36415; 84702; 99212

== ENCOUNTER 2024-06-28 10:34 | Outpatient (AMB) | payer OTHER, SELFPAY ==
--- NOTE | 2024-06-28 11:21 | A.OFFVIS_ITS ---
Intake Visit Reasons: HCG follow up Operations Vice President Required: Yes Operations Vice President Language: Sloveniancoleman Curran Operations Vice President Services: Operations Vice President Present ([employer] ) Operations Vice President Name: Nita [id number] Information Interpreted: clinical only Accompanied by: Self / Same As Patient Allergies No Known Allergies Allergy (Verified 06/28/24 11:28) HPI Comments Details: Presenting for follow-up with no complaints no vaginal bleeding pelvic cramping or any other concerns. HCG done today's down to <2 Review of Systems Const All systems reviewed & are unremarkable except as noted in HPI and below Reports as per HPI and Reports no additional complaints GI Reports no additional complaints Reports no additional complaints Assessment & Plan Assessment & Plan (1) Complete : Code(s): O03.9 - Complete or unspecified spontaneous without complication Category: Medical Plan: Discussed with the patient the results hCG less than 2. Instructions given the patient to schedule annual exam within few months. All questions answered, the patient verbalized understanding and agreed with the plan Coding Level of Care Code Est Pt Level 3 (22787) Diagnoses Complete O03.9
== END 2024-06-28 11:54 | disposition home or self-care (01) ==
LOC: HO.HWS 10:34
PROVIDERS: Visit Provider Obstetrics & Gynecology
DX: O03.9 Complete or unspecified spontaneous abortion without complication (principal)
CPT/HCPCS: 99213

== ENCOUNTER 2024-11-29 11:16 | Outpatient (REF) | payer MEDICAID, SELFPAY ==
[2024-12-06 07:53] LABS: HPV Genotype 16 Negative (Negative); HPV Genotype 18 Negative (Negative); HPV High Risk Negative (Negative)
== END 2024-11-29 11:17 | disposition home or self-care (01) ==
LOC: HO.LNP 11:16
PROVIDERS: Visit Provider Obstetrics & Gynecology
DX: Z01.419 Encounter for gynecological examination (general) (routine) without abnormal findings (principal)
CPT/HCPCS: 87626; 88175

== ENCOUNTER 2024-12-11 18:08 | Emergency (ER) | payer MEDICAID, SELFPAY ==
[2024-12-11 18:39] VITALS: BP 118/74; PULSE 73; RESP 18; TEMP 36.7; O2SAT 100; BMI 29.1
--- NOTE | 2024-12-11 18:43 | ED.GENADULT ---
HPI - General Adult General Chief complaint: Vaginal Bleeding Stated complaint: headache Time Seen by Provider: 12/11/24 22:09 Related Data Previous Rx's ?Medication ?Instructions ?Recorded cyclobenzaprine 10 mg tablet 10 mg PO TID PRN muscle spasm #14 12/11/24 tabs Allergies Allergy/AdvReac Type Severity Reaction Status Date / Time No Known Allergies Allergy Verified 12/11/24 18:46 [facility] Past Medical History Medical History History of miscarriage Family History Family History Sister HTN (hypertension) Diabetes Social History Social History Household Members: Spouse Household Members Other:: son Housing Other:: [facility] Alcohol intake: never Patient Tobacco Use Status: Never used Tobacco Smoked in Last 30 Days: No Use of substances other than those prescribed or required for medical reasons: No Advance Directives: No Advance Directives Information Provided: No Current occupational status: unemployed Sexual orientation: Straight/Heterosexual Gender identity: Female Physical Exam ED Vital Signs: Vital Signs - 24 hr 12/11/24 18:39 12/11/24 22:14 12/12/24 00:34 Temperature 98.0 F 97.8 F 98.3 F Pulse Rate 73 60 70 Respiratory Rate 18 18 16 Blood Pressure 118/74 122/78 114/82 Pulse Oximetry 100 100 99 Oxygen Delivery Method Room Air Room Air Room Air BMI result Body Mass Index 29.1 Course Course Course Narrative: This is an RME: Additional HPI, ROS, PE not included below will be deferred to primary provider. RME assessment and note performed by: Myriam Leung PA-C This is a [id number]-female who presents to the ER with complaints of headache and heavy menstrual cycle which started this AM. In May she had a miscarriage. Was seen by Dr. Xie for heavy menses on November 29, 2024. She is speaking in full sentences appears to be under no acute distress. Plan: Labs, UA, viral swabs further er eval needed Reevaluation(s) Reevaluation #1: See other note from primary provider, Dr. Unger Medications Administered Discontinued Medications Generic Name Dose Route Start Last Admin Trade Name Freq PRN Reason Stop Dose Admin Cyclobenzaprine HCl 10 mg 12/11/24 23:44 12/12/24 00:20 Cyclobenzaprine Hcl 10 Mg Tablet PO 12/11/24 23:45 10 mg ONCE ONE Administration Tranexamic Acid 1,000 mg/ 260 mls @ 32.5 mls/hr 12/11/24 22:10 12/12/24 01:05 Sodium Chloride IV 12/12/24 06:09 0 mls/hr .Q8H ONE Infusion Ibuprofen 600 mg 12/11/24 22:10 12/11/24 22:36 Ibuprofen 600 Mg Tablet PO 12/11/24 22:11 600 mg ONCE ONE Administration Medical Decision Making Lab Data 12/11/24 20:28 12/11/24 20:28 Labs: Lab Results 12/11/24 12/11/24 Range/Units 20:28 22:33 WBC 4.6 L (4.8-10.8) X10*3/uL RBC 4.60 (4.20-5.50) X10*6/uL Hgb 12.0 (12.0-16.0) g/dl Hct 37.1 (37.0-47.0) % MCV 80.7 (80.0-98.0) fL MCH 26.1 L (27.0-33.0) pg MCHC 32.3 (31.0-35.0) g/dl RDW 13.4 (11.0-16.0) % Plt Count 233 (160-400) X10*3/uL MPV 9.5 (9.4-12.3) fL Immature Gran % (Auto) 0.2 (0.0-0.4) % Neut % (Auto) 50.0 (45-73) % Lymph % (Auto) 39.7 (20-40) % [place] % (Auto) 7.9 (2-11) % Eos % (Auto) 1.5 (0-4) % Baso % (Auto) 0.7 (0-2) % Lymph # (Auto) 1.8 (1.2-4.9) X10*3/uL [place] # (Auto) 0.4 (0.1-1.2) X10*3/uL Eos # (Auto) 0.1 (0.0-0.4) X10*3/uL Baso # (Auto) 0.0 (0.0-0.2) X10*3/uL Abs Immat Gran (auto) 0.01 (0.00-0.03) X10*3/uL Absolute Neuts (auto) 2.3 (2.0-8.3) x10*3/uL Absolute Nucleated RBC 0.000 (0.0-0.012) X10*3/uL Nucleated RBC % (auto) 0.0 (0.0-0.2) /100WBC Sodium 142 (135-145) mmol/L Potassium 3.6 (3.3-5.1) mmol/L Chloride 110 H (96-108) mmol/L Carbon Dioxide 27 (22-29) mmol/L Anion Gap 9 L (12-20) BUN 9 (9-16) mg/dL Creatinine 0.70 (0.5-1.4) mg/dL Estim Creat Clear Calc 102.2 Estimated GFR > 60 Random Glucose 97 (60-115) mg/dL Calcium 8.9 (8.4-10.2) mg/dL Total Bilirubin 0.4 (0.0-1.0) mg/dL Direct Bilirubin 0.1 (0.0-0.5) mg/dL AST 18 (5-31) U/L ALT 17 (0-31) U/L Alkaline Phosphatase 80 (39-117) U/L Total Protein 7.1 (6.5-8.0) g/dL Albumin 3.9 (3.5-5.0) g/dL Beta HCG, Quant < 2 mIU/mL Urine Color Yellow Urine Appearance Clear Urine pH 7.5 (5.0-9.0) Ur Specific [place] 1.020 (1.005-1.025) Urine Protein Negative (Neg-Trace) mg/dL Urine Glucose (UA) Negative (Negative) mg/dL Urine Ketones Trace (Negative) mg/dL Urine Blood Moderate (2+) H (Negative) Urine Nitrite Negative (Negative) Ur Leukocyte Esterase Trace H (Negative) Urine RBC >20 H (0-2) /HPF Urine WBC 0-5 (0-5) /HPF Ur Squamous Epith Cells 0-2 (0-2) /HPF Urine Bacteria None Seen (None Seen) Hyaline Casts 0-2 (0-2) /LPF Influenza Type A (PCR) NEGATIVE (Negative) Influenza Type B (PCR) NEGATIVE (Negative) RSV RNA Qual (PCR) NEGATIVE (Negative) SARS-CoV-2 RNA (RT-PCR) NEGATIVE (Negative) Discharge Plan Discharge Clinical Impression: Neck strain, Abnormal uterine bleeding Patient Disposition: Home, Self-Care Instructions: Cervical Sprain (ED) Additional Instructions: DISCHARGE DIAGNOSES: Vaginal bleeding with clots abnormal uterine bleeding Neck pain likely strain or spasm of the neck muscles HISTORY OF PRESENTATION: ?Atraumatic neck pain EMERGENCY DEPARTMENT COURSE,TESTS, TREATMENTS: While in the ED today you were examined with no signs of injury or significant neurologic compromise. Blood work was reassuring with no significant anemia you were given ibuprofen and initially started TXA infusion for abnormal uterine bleeding but this was stopped after about 25% of 1 g DISCHARGE MEDICATIONS: ?[We have made no changes to your regular medication regimen] cyclobenzaprine can be taken as needed do not drive with this continue using ibuprofen 600 or 800 mg every 6 hours as needed FOLLOW-UP: ?Call your primary or general physician soon as possible to discuss your symptoms, your ED visit and to discuss follow up plans Call your primary doctor Call OBGYN at [facility] for follow up regarding your abnormal uterine bleeding the #[phone]. INSTRUCTIONS ?& RETURN PRECAUTIONS: If any symptoms change first call your primary physician, if it is after-hours your primary doctors office should have a provider water pollution control inspector you can speak with. If the symptoms are severe or very concerning to you then call 911 or return to the ED. [07] Nacho Unger MD Emergency Physician [facility] Prescriptions: New cyclobenzaprine 10 mg tablet 10 mg PO TID PRN (Reason: muscle spasm) Qty: 14 0RF Discharge Date/Time: 12/12/24 00:13 Print Language: Bulgarian Creerin
[2024-12-11 20:36] LABS: MANUAL DIFF FLAG NO
[2024-12-11 20:37] LABS: Basophils Percent Auto 0.7 % (0-2); Eosinophils Absolute Auto 0.1 X10*3/uL (0.0-0.4); Eosinophils Percent Auto 1.5 % (0-4); Hematocrit 37.1 % (37.0-47.0); Imm Gran Abs Auto 0.01 X10*3/uL (0.00-0.03); Imm Gran Pct Auto 0.2 % (0.0-0.4); Lymphocytes Absolute Auto 1.8 X10*3/uL (1.2-4.9); Lymphocytes Percent Auto 39.7 % (20-40); Mean Corpuscular HGB Conc 32.3 g/dl (31.0-35.0); Mean Corpuscular Hemoglobin 26.1 pg (27.0-33.0); Mean Corpuscular Volume 80.7 fL (80.0-98.0); Mean Platelet Volume 9.5 fL (9.4-12.3); Monocytes Absolute Auto 0.4 X10*3/uL (0.1-1.2); Monocytes Percent Auto 7.9 % (2-11); Neutrophils Absolute Auto 2.3 x10*3/uL (2.0-8.3); Platelet Count 233 X10*3/uL (160-400); Red Cell Distribution Width 13.4 % (11.0-16.0); White Blood Count 4.6 X10*3/uL (4.8-10.8)
[2024-12-11 20:58] LABS: Alanine Aminotransferase 17 U/L (0-31); Albumin Level 3.9 g/dL (3.5-5.0); Alkaline Phosphatase 80 U/L (39-117); Anion Gap 9 (12-20); Aspartate Amino Transferase 18 U/L (5-31); Bilirubin Direct 0.1 mg/dL (0.0-0.5); Bilirubin Total 0.4 mg/dL (0.0-1.0); Blood Urea Nitrogen 9 mg/dL (9-16); Calcium 8.9 mg/dL (8.4-10.2); Carbon Dioxide 27 mmol/L (22-29); Chloride 110 mmol/L (96-108); Creatinine Clr Calc Pharmacy 102.2; Estimated Glomerular Filt Rate > 60; Glucose Random 97 mg/dL (60-115); Potassium 3.6 mmol/L (3.3-5.1); Sodium 142 mmol/L (135-145); Total Protein 7.1 g/dL (6.5-8.0)
[2024-12-11 20:59] LABS: HCG Quantitative < 2 mIU/mL
[2024-12-11 21:14] LABS: Influenza A PCR NEGATIVE (Negative); Influenza B PCR NEGATIVE (Negative); Resp Syncy Virus RNA Qual PCR NEGATIVE (Negative); SARS COV2 PCR INHOUSE NEGATIVE (Negative)
--- NOTE | 2024-12-11 21:39 | PC.NURSE ---
no answer from WR @21:35
[2024-12-11 22:14] VITALS: BP 122/78; PULSE 60; RESP 18; TEMP 36.6; O2SAT 100
[2024-12-11] MEDS: Ibuprofen 600 MG TABLET PO (22:36)
[2024-12-11] MEDS: Tranexamic Acid 1,000 MG in 0.9 % Sodium Chloride 250 ML 32.5 MG IV (22:37)
[2024-12-11 22:56] LABS: Appearance Urine Clear; Color Urine Yellow; Glucose Urine UA Negative (Negative); Leukocyte Esterase Urine Trace (Negative); Nitrite Urine Negative (Negative); PH 7.5 (5.0-9.0); UMIC TRIGGER UACC YES; Urine Blood Moderate (2+) (Negative); Urine Ketones Trace mg/dL (Negative); Urine Protein Negative (Neg-Trace)
[2024-12-11 23:04] LABS: Bacteria Urine None Seen (None Seen); Hyaline Casts Urine 0-2 /LPF (0-2); RBC Urine >20 /HPF (0-2); Squamous Epithelial Cell Urine 0-2 /HPF (0-2); WBC Urine 0-5 /HPF (0-5)
--- NOTE | 2024-12-11 23:45 | ED.GENADULT ---
HPI - General Adult General Chief complaint: Vaginal Bleeding Stated complaint: headache Time Seen by Provider: 12/11/24 22:09 History of Present Illness ED Provider: Nacho Unger MD HPI narrative: This is a 39-year-old pleasant Venezuelan Creole speaking female with a history of heavy periods with clots since a miscarriage in May she denies abdominal pain her main reason for presentation however is left-sided trapezius neck discomfort worse with neck rotation. No stiff neck vision symptoms or fever. She has a mild frontal headache but mostly complains of the neck pain no injury recently Related Data Previous Rx's ?Medication ?Instructions ?Recorded cyclobenzaprine 10 mg tablet 10 mg PO TID PRN muscle spasm #14 12/11/24 tabs Allergies Allergy/AdvReac Type Severity Reaction Status Date / Time No Known Allergies Allergy Verified 12/11/24 18:46 PMFSH Past Medical History Medical History History of miscarriage Family History Family History Sister HTN (hypertension) Diabetes Social History Social History Household Members: Spouse Household Members Other:: son Housing Other:: [facility] Alcohol intake: never Patient Tobacco Use Status: Never used Tobacco Smoked in Last 30 Days: No Use of substances other than those prescribed or required for medical reasons: No Advance Directives: No Advance Directives Information Provided: No Current occupational status: unemployed Sexual orientation: Straight/Heterosexual Gender identity: Female Physical Exam ED Vital Signs: Vital Signs - 24 hr 12/11/24 18:39 12/11/24 22:14 12/12/24 00:34 Temperature 98.0 F 97.8 F 98.3 F Pulse Rate 73 60 70 Respiratory Rate 18 18 16 Blood Pressure 118/74 122/78 114/82 Pulse Oximetry 100 100 99 Oxygen Delivery Method Room Air Room Air Room Air BMI result Body Mass Index 29.1 Const Other: EXAM: Gen: Alert, awake, well appearing, well hydrated. Head: Atraumatic Eyes: Anicteric, Normal conjunctiva. ENT: Moist mucosa, no pallor. ? Neck: Mild pain with rotation although she does have quite good rotation and flexion-extension range. No midline tenderness no masses skin changes. She is quite tender with palpable muscular spasm of the left trapezius Respiratory: Breathing comfortably, No distress.Clear to auscultation bilaterally, symmetric chest expansion, No wheeze, rales, ronchi. Cardiovascular: Regular rate and rhythm. No murmurs or rub. Well perfused periphery, warm extremities. No edema. ? Abdominal: No FOCAL TENDERNESS. Soft, no objective distension. No palpable masses or obvious organomegaly. ?No guarding, no rebound tenderness or other peritoneal findings. : No flank tenderness. Neuro: Alert. Gross movement of all extremities intact. ?No meningismus. 5/5 strength proximal and distal Psych: Calm. Cooperative. MSK: No grossly visible deformity. Vital signs: See flowsheet Medications Administered Generic Name Dose Route Start Last Admin Trade Name Freq PRN Reason Stop Dose Admin Tranexamic Acid 1,000 mg/ 260 mls @ 32.5 mls/hr 12/11/24 22:10 12/12/24 00:41 Sodium Chloride IV 12/12/24 06:09 32.5 mls/hr .Q8H ONE Infusion Discontinued Medications Generic Name Dose Route Start Last Admin Trade Name Freq PRN Reason Stop Dose Admin Cyclobenzaprine HCl 10 mg 12/11/24 23:44 12/12/24 00:20 Cyclobenzaprine Hcl 10 Mg Tablet PO 12/11/24 23:45 10 mg ONCE ONE Administration Ibuprofen 600 mg 12/11/24 22:10 12/11/24 22:36 Ibuprofen 600 Mg Tablet PO 12/11/24 22:11 600 mg ONCE ONE Administration Medical Decision Making Medical Decision Making MDM Narrative: 39-year-old female non with heavy menses clots. No anemia. 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 She is afebrile is not meningitic nor is there any trauma involved I do not think she has bony cervical injury, meningitis this is very likely to be cervical strain and/or trapezius spasm we discussed muscle relaxants, NSAIDs, massage and heating pad with frequent ranging of the neck Lab Data 12/11/24 20:28 12/11/24 20:28 Labs: Lab Results 12/11/24 12/11/24 Range/Units 20:28 22:33 WBC 4.6 L (4.8-10.8) X10*3/uL RBC 4.60 (4.20-5.50) X10*6/uL Hgb 12.0 (12.0-16.0) g/dl Hct 37.1 (37.0-47.0) % MCV 80.7 (80.0-98.0) fL MCH 26.1 L (27.0-33.0) pg MCHC 32.3 (31.0-35.0) g/dl RDW 13.4 (11.0-16.0) % Plt Count 233 (160-400) X10*3/uL MPV 9.5 (9.4-12.3) fL Immature Gran % (Auto) 0.2 (0.0-0.4) % Neut % (Auto) 50.0 (45-73) % Lymph % (Auto) 39.7 (20-40) % [place] % (Auto) 7.9 (2-11) % Eos % (Auto) 1.5 (0-4) % Baso % (Auto) 0.7 (0-2) % Lymph # (Auto) 1.8 (1.2-4.9) X10*3/uL [place] # (Auto) 0.4 (0.1-1.2) X10*3/uL Eos # (Auto) 0.1 (0.0-0.4) X10*3/uL Baso # (Auto) 0.0 (0.0-0.2) X10*3/uL Abs Immat Gran (auto) 0.01 (0.00-0.03) X10*3/uL Absolute Neuts (auto) 2.3 (2.0-8.3) x10*3/uL Absolute Nucleated RBC 0.000 (0.0-0.012) X10*3/uL Nucleated RBC % (auto) 0.0 (0.0-0.2) /100WBC Sodium 142 (135-145) mmol/L Potassium 3.6 (3.3-5.1) mmol/L Chloride 110 H (96-108) mmol/L Carbon Dioxide 27 (22-29) mmol/L Anion Gap 9 L (12-20) BUN 9 (9-16) mg/dL Creatinine 0.70 (0.5-1.4) mg/dL Estim Creat Clear Calc 102.2 Estimated GFR > 60 Random Glucose 97 (60-115) mg/dL Calcium 8.9 (8.4-10.2) mg/dL Total Bilirubin 0.4 (0.0-1.0) mg/dL Direct Bilirubin 0.1 (0.0-0.5) mg/dL AST 18 (5-31) U/L ALT 17 (0-31) U/L Alkaline Phosphatase 80 (39-117) U/L Total Protein 7.1 (6.5-8.0) g/dL Albumin 3.9 (3.5-5.0) g/dL Beta HCG, Quant < 2 mIU/mL Urine Color Yellow Urine Appearance Clear Urine pH 7.5 (5.0-9.0) Ur Specific [place] 1.020 (1.005-1.025) Urine Protein Negative (Neg-Trace) mg/dL Urine Glucose (UA) Negative (Negative) mg/dL Urine Ketones Trace (Negative) mg/dL Urine Blood Moderate (2+) H (Negative) Urine Nitrite Negative (Negative) Ur Leukocyte Esterase Trace H (Negative) Urine RBC >20 H (0-2) /HPF Urine WBC 0-5 (0-5) /HPF Ur Squamous Epith Cells 0-2 (0-2) /HPF Urine Bacteria None Seen (None Seen) Hyaline Casts 0-2 (0-2) /LPF Influenza Type A (PCR) NEGATIVE (Negative) Influenza Type B (PCR) NEGATIVE (Negative) RSV RNA Qual (PCR) NEGATIVE (Negative) SARS-CoV-2 RNA (RT-PCR) NEGATIVE (Negative) Discharge Plan Discharge Clinical Impression: Neck strain, Abnormal uterine bleeding Patient Disposition: Left W/O Completing Treatment Additional Instructions: DISCHARGE DIAGNOSES: Vaginal bleeding with clots abnormal uterine bleeding Neck pain likely strain or spasm of the neck muscles HISTORY OF PRESENTATION: ?Atraumatic neck pain EMERGENCY DEPARTMENT COURSE,TESTS, TREATMENTS: While in the ED today you were examined with no signs of injury or significant neurologic compromise. Blood work was reassuring with no significant anemia you were given ibuprofen and initially started TXA infusion for abnormal uterine bleeding but this was stopped after about 25% of 1 g DISCHARGE MEDICATIONS: ?[We have made no changes to your regular medication regimen] cyclobenzaprine can be taken as needed do not drive with this continue using ibuprofen 600 or 800 mg every 6 hours as needed FOLLOW-UP: ?Call your primary or general physician soon as possible to discuss your symptoms, your ED visit and to discuss follow up plans Call your primary doctor Call OBGYN at [facility] for follow up regarding your abnormal uterine bleeding the #[phone]. INSTRUCTIONS ?& RETURN PRECAUTIONS: If any symptoms change first call your primary physician, if it is after-hours your primary doctors office should have a provider roofing contractor you can speak with. If the symptoms are severe or very concerning to you then call 911 or return to the ED. [07] Nacho Unger MD Emergency Physician [facility] Prescriptions: New cyclobenzaprine 10 mg tablet 10 mg PO TID PRN (Reason: muscle spasm) Qty: 14 0RF
[2024-12-12] MEDS: Cyclobenzaprine HCl 10 MG TABLET PO (00:20)
[2024-12-12 00:34] VITALS: BP 114/82; PULSE 70; RESP 16; TEMP 36.8; O2SAT 99
== END 2024-12-12 00:13 | disposition home or self-care (01) ==
PROVIDERS: Physician Assistant Medical; Emergency Provider Emergency Medicine
DX: N93.8 Other specified abnormal uterine and vaginal bleeding (principal); M54.2 Cervicalgia; R51.9 Headache, unspecified; R10.2 Pelvic and perineal pain; Z03.818 Encounter for observation for suspected exposure to other biological agents ruled out; Z79.899 Other long term (current) drug therapy
CPT/HCPCS: 0241U; 36415; 80048; 80076; 81001; 84702; 85025; 96365; 96366; 99284

== ENCOUNTER 2025-01-20 08:59 | Emergency (ER) | payer MEDICAID, SELFPAY ==
--- NOTE | ~2025-01-20 | US_ITS ---
CLINICAL HISTORY: right ovary cyst r o torsion --- Additional Notes or Special Instructions: exquisitely ttp US pelvis transabdominal and transvaginal with Doppler Comparison: CT/SR - CT ABDOMEN PELVIS W IV CON - 01/20/25 11:03 EDT US/SR - US OB PELVIC AND TRANSVAGINAL - 06/02/24 14:19 EST Findings: Transabdominal scanning performed for overall anatomy. Transvaginal scanning performed for additional detail. Anteverted uterus is 9.3 cm length. In the left side of the uterus there are 2 adjacent myometrial masses, 1 measuring 1.0 cm in the other measuring 0.9 cm, near the fundus. These are consistent with small uterine fibroids. Adjacent to the fundus of the uterus there is a predominantly anechoic 1.0 cm cystic structure. There are a few tiny subcentimeter cysts within the myometrium. Junctional zone is well demarcated. Endometrium 11 mm thickness. Right ovary 4.1 x 2.8 x 3.8 cm. Normal follicles and incidentally noted 2 cm corpus luteum cyst. Left ovary 4.1 x 1.6 x 1.5 cm. Normal morphology, small follicles. Normal color Doppler with arterial/venous spectral tracing of both ovaries. Trace free fluid. IMPRESSION: 1. No evidence of ovarian torsion. 2. There are 2 small intrauterine fibroids. 3. Cystic 1.0 cm structure adjacent to uterine fundus which could be a degenerated pedunculated fibroid, Endometrioma or an adnexal cyst. This document has been electronically signed by: Héctor Gamez MD on 01/20/2025 15:24:12
--- NOTE | ~2025-01-20 | CT_ITS ---
CLINICAL HISTORY: RLQ pain, ?ovary v appendix CT abdomen and pelvis with contrast Comparison: US/SR - US OB PELVIC AND TRANSVAGINAL - 06/02/24 14:19 EST Findings: No consolidation or effusion. In the posterior right lobe of the liver there is a 2.6 cm hemangioma. Multiple small cysts are noted within the liver. Spleen, adrenal glands, pancreas and gallbladder normal. Kidneys are normal. No bowel obstruction, pneumoperitoneum, or pneumatosis. Tiny fat containing umbilical hernia. In the right ovary there is a 2.3 cm cyst, Suggesting an involuting corpus luteum cyst. Left ovary and uterus are unremarkable. Urinary bladder is normal. Appendix is normal. Trace free fluid in the pelvis. No acute fracture. IMPRESSION: 1. No acute findings. Normal appendix. 2. Incidental note of probable involuting corpus luteum cyst in the right ovary measuring 2.3 cm. 3. Incidental note of 2.6 cm liver hemangioma This document has been electronically signed by: Héctor Gamez MD on 01/20/2025 12:34:48
[2025-01-20 09:08] VITALS: BMI 23.9
--- NOTE | 2025-01-20 09:32 | ED_ITS ---
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 This sensation has been intermittent. No abdominal pain. Admits this feels similar to her previous pregnancies. Reports getting her period twice last month 12/15/24 and 01/03/25. This is not typical for her. She denies any vaginal bleeding or discharge since ending her LMP. She is currently sexually active. She does not use protection. Denies concern for STDs. Reports regular bowel movements. Her last BM was this morning. Denies history of abdominal surgery. Admits to miscarriage in May of 2024. Related Data Previous Rx's ?Medication ?Instructions ?Recorded cyclobenzaprine 10 mg tablet 10 mg PO TID PRN muscle s pasm #14 12/11/24 tabs ibuprofen 600 mg tablet 600 mg PO Q8H PRN pain (scal e 01/20/25 score 4-6) #30 tabs Allergies Allergy/AdvReac Type Severity Reaction Status Date / Time No Known Allergies Allergy Verified 01/20/25 09:15 Review of Systems Review of Systems Yes all other systems are reviewed and are negative PMFSH Past Medical History Attestation statement: The following information was validated with the patient. Source: old records reviewed and nursing notes reviewed Medical History History of miscarriage Family History Family History Sister HTN (hypertension) Diabetes Social History Social History Household Members: Spouse Household Members Other:: son Housing Other:: alf Alcohol intake: never Patient Tobacco Use Status: Never used Tobacco Current occupational status: unemployed Sexual orientation: Straight/Heterosexual Gender identity: Female Physical Exam ED Vital Signs: Vital Signs - 24 hr 01/20/25 09:43 Temperature 98.4 F Pulse Rate 60 Respiratory Rate 16 Blood Pressure 108/56 L Pulse Oximetry 100 Oxygen Delivery Method Room Air BMI result Body Mass Index 23.9 vital signs stable General: Well appearing, in no acute distress. Skin: Warm, dry, intact. No rashes or lesions. Head: Normocephalic, atraumatic. EENT: Hearing is intact b/l. Conjunctiva clear. PERRLA. EOM intact. Moist mucous membranes.? Neck: Supple without LAD Cardiac: Chest wall symmetric. RRR Lungs: Normal respiratory effort without accessory muscle use. CTA bilaterally Abdomen: obese, soft, nondistended, tender to palpation of right lower quadrant with guarding, no rebound. Active bowel sounds x4. No CVAT Back: No midline spinous or paraspinal tenderness. No step off deformity. Ext: Upper and lower extremities atraumatic, without tenderness, deformity, swelling or erythema Neuro: AOx3. Normal speech. Ambulating with steady gait. Course Course Course Narrative: 1107 -- CBC showing leukopenia to 3.8. Microcytic anemia, H&H appears to be around patient's baseline when compared to priors. Chemistry without acute electrolyte abnormality requiring intervention. No LOUISA. Liver function WNL. Lipase WNL. Beta hCG undetectable - unlikely. Urinalysis without infection. Urine negative. > patient declining any pain at the moment. Will hold on pain control. > CT abdomen/pelvis pending 163 -- CT abdomen/pelvis showing normal appendix. In the right ovary there is a 2.3 cm cyst suggesting involuting corpus luteum cyst. Left ovary/uterus are unremarkable. Incidental note of 2.6 cm liver hemangioma. Given patient's tenderness to palpation of right lower quadrant, pelvic ultrasound/Doppler ordered to further characterize the cyst. Pelvic Doppler without evidence of torsion. There are 2 small intrauterine fibroids. There is a cystic 1.0 cm structure adjacent to the uterine fundus which may represent degenerative pedunculated fibroid, endometrioma or an adnexal cyst. > discussed findings with patient. Advised NSAIDs at home as needed for pain. Advised OBGYN follow up. Referral provided. There is no emergent management necessary at this time. Medical Decision Making Medical Decision Making MDM Narrative: 40 year old female, hatian creole speaking, (2 miscarriages, 1 , 6 living children) presents to the ED today for warm sensation in her abdomen x2 days. Vital signs stable. afebrile. She is well appearing and in NAD. on exam, obese, soft, nondistended, tender to palpation of right lower quadrant with guarding, no rebound. Active bowel sounds x4. No CVAT Differential diagnoses: appendicitis, diverticulitis, diverticulosis, UTI, IUP, constipation Abdominal exam without peritoneal signs. No evidence of acute abdomen at this time. Well appearing. Low suspicion for acute hepatobiliary disease (including acute cholecystitis), acute infectious processes (pneumonia, hepatitis, pyelonephritis, PID, TOA), vascular catastrophe, bowel obstruction or viscus perforation, ovarian cyst/ rupture/ torsion, ectopic. Presentation not consistent with other acute, emergent causes of abdominal pain at this time. Plan for labs, UA, imaging, and re-evaluation. Differential Diagnosis Differential Diagnoses: The differential diagnosis associated with the presentation includes gastroenteritis, IUP, ectopic, PID, ovarian cyst, TOA, UTI, appendicits Admission/Observation not indicated Lab Data MDM Lab Attestation statement: I reviewed the patient's lab results. as above. 01/20/25 09:55 01/20/25 09:55 Labs: Lab Results 01/20/25 01/20/25 01/20/25 Range/Units 09:49 09:52 09:55 WBC 3.8 L (4.8-10.8) X10*3/uL RBC 4.24 (4.20-5.50) X10*6/uL Hgb 11.2 L (12.0-16.0) g/dl Hct 33.4 L (37.0-47.0) % MCV 78.8 L (80.0-98.0) fL MCH 26.4 L (27.0-33.0) pg MCHC 33.5 (31.0-35.0) g/dl RDW 14.6 (11.0-16.0) % Plt Count 228 (160-400) X10*3/uL MPV 9.4 (9.4-12.3) fL Immature Gran % (Auto) 0.3 (0.0-0.4) % Neut % (Auto) 53.4 (45-73) % Lymph % (Auto) 35.4 (20-40) % [place] % (Auto) 9.0 (2-11) % Eos % (Auto) 0.8 (0-4) % Baso % (Auto) 1.1 (0-2) % Lymph # (Auto) 1.3 (1.2-4.9) X10*3/uL [place] # (Auto) 0.3 (0.1-1.2) X10*3/uL Eos # (Auto) 0.0 (0.0-0.4) X10*3/uL Baso # (Auto) 0.0 (0.0-0.2) X10*3/uL Abs Immat Gran (auto) 0.01 (0.00-0.03) X10*3/uL Absolute Neuts (auto) 2.0 (2.0-8.3) x10*3/uL Absolute Nucleated RBC 0.000 (0.0-0.012) X10*3/uL Nucleated RBC % (auto) 0.0 (0.0-0.2) /100WBC Sodium 138 (135-145) mmol/L Potassium 3.9 (3.3-5.1) mmol/L Chloride 108 (96-108) mmol/L Carbon Dioxide 24 (22-29) mmol/L Anion Gap 10 L (12-20) BUN 8 L (9-16) mg/dL Creatinine 0.72 (0.5-1.4) mg/dL Estim Creat Clear Calc 84.2 Estimated GFR > 60 Random Glucose 91 (60-115) mg/dL Calcium 8.8 (8.4-10.2) mg/dL Magnesium 1.8 (1.6-2.6) mg/dL Total Bilirubin 0.3 (0.0-1.0) mg/dL AST 27 (5-31) U/L ALT 32 H (0-31) U/L Alkaline Phosphatase 71 (39-117) U/L Total Protein 7.0 (6.5-8.0) g/dL Albumin 3.8 (3.5-5.0) g/dL Lipase 32 (8-78) U/L Beta HCG, Quant < 2 mIU/mL Urine Color Yellow Urine Appearance Clear Urine pH 6.0 (5.0-9.0) Ur Specific [place] 1.015 (1.005-1.025) Urine Protein Negative (Neg-Trace) mg/dL Urine Glucose (UA) Negative (Negative) mg/dL Urine Ketones Negative (Negative) mg/dL Urine Blood Negative (Negative) Urine Nitrite Negative (Negative) Ur Leukocyte Esterase Negative (Negative) Urine Test NEGATIVE (NEGATIVE) Ur N gonorrhoeae DNA (PCR) (Not Detect.) Ur Chlamydia DNA (PCR) (Not Detect.) 01/20/25 Range/Units 14:49 WBC (4.8-10.8) X10*3/uL RBC (4.20-5.50) X10*6/uL Hgb (12.0-16.0) g/dl Hct (37.0-47.0) % MCV (80.0-98.0) fL MCH (27.0-33.0) pg MCHC (31.0-35.0) g/dl RDW (11.0-16.0) % Plt Count (160-400) X10*3/uL MPV (9.4-12.3) fL Immature Gran % (Auto) (0.0-0.4) % Neut % (Auto) (45-73) % Lymph % (Auto) (20-40) % [place] % (Auto) (2-11) % Eos % (Auto) (0-4) % Baso % (Auto) (0-2) % Lymph # (Auto) (1.2-4.9) X10*3/uL [place] # (Auto) (0.1-1.2) X10*3/uL Eos # (Auto) (0.0-0.4) X10*3/uL Baso # (Auto) (0.0-0.2) X10*3/uL Abs Immat Gran (auto) (0.00-0.03) X10*3/uL Absolute Neuts (auto) (2.0-8.3) x10*3/uL Absolute Nucleated RBC (0.0-0.012) X10*3/uL Nucleated RBC % (auto) (0.0-0.2) /100WBC Sodium (135-145) mmol/L Potassium (3.3-5.1) mmol/L Chloride (96-108) mmol/L Carbon Dioxide (22-29) mmol/L Anion Gap (12-20) BUN (9-16) mg/dL Creatinine (0.5-1.4) mg/dL Estim Creat Clear Calc Estimated GFR Random Glucose (60-115) mg/dL Calcium (8.4-10.2) mg/dL Magnesium (1.6-2.6) mg/dL Total Bilirubin (0.0-1.0) mg/dL AST (5-31) U/L ALT (0-31) U/L Alkaline Phosphatase (39-117) U/L Total Protein (6.5-8.0) g/dL Albumin (3.5-5.0) g/dL Lipase (8-78) U/L Beta HCG, Quant mIU/mL Urine Color Urine Appearance Urine pH (5.0-9.0) Ur Specific [place] (1.005-1.025) Urine Protein (Neg-Trace) mg/dL Urine Glucose (UA) (Negative) mg/dL Urine Ketones (Negative) mg/dL Urine Blood (Negative) Urine Nitrite (Negative) Ur Leukocyte Esterase (Negative) Urine Test (NEGATIVE) Ur N gonorrhoeae DNA (PCR) NOT DETECTED (Not Detect.) Ur Chlamydia DNA (PCR) NOT DETECTED (Not Detect.) Independent Interpretation I performed an independent interpretation of an: Ultrasound and CT Scan Interpretation: pelvic US without intrauterine ct a/p without bowel obstruction Radiology Impression Discussion of test interpretation with radiology: I have reviewed the radiologist's reading. Radiologist Impression: Procedure(s): US pelvic ovarian doppler Accession Number(s): [id number] cc: Physician,Unknown ; Joselyn Mcnair~ CLINICAL HISTORY: right ovary cyst r o torsion --- Additional Notes or Special Instructions: exquisitely ttp US pelvis transabdominal and transvaginal with Doppler Comparison: CT/SR - CT ABDOMEN PELVIS W IV CON - 01/20/25 11:03 EDT US/SR - US OB PELVIC AND TRANSVAGINAL - 06/02/24 14:19 EST Findings: Transabdominal scanning performed for overall anatomy. Transvaginal scanning performed for additional detail. Anteverted uterus is 9.3 cm length. In the left side of the uterus there are 2 adjacent myometrial masses, 1 measuring 1.0 cm in the other measuring 0.9 cm, near the fundus. These are consistent with small uterine fibroids. Adjacent to the fundus of the uterus there is a predominantly anechoic 1.0 cm cystic structure. There are a few tiny subcentimeter cysts within the myometrium. Junctional zone is well demarcated. Endometrium 11 mm thickness. Right ovary 4.1 x 2.8 x 3.8 cm. Normal follicles and incidentally noted 2 cm corpus luteum cyst. Left ovary 4.1 x 1.6 x 1.5 cm. Normal morphology, small follicles. Normal color Doppler with arterial/venous spectral tracing of both ovaries. Trace free fluid. IMPRESSION: 1. No evidence of ovarian torsion. 2. There are 2 small intrauterine fibroids. 3. Cystic 1.0 cm structure adjacent to uterine fundus which could be a degenerated pedunculated fibroid, Endometrioma or an adnexal cyst. This document has been electronically signed by: Héctor Gamez MD on 01/20/2025 15:24:12 Date of Service: 01/20/25 Procedure(s): CT abdomen pelvis w IV con Accession Number(s): [id number] cc: Physician,Unknown ; Joselyn Mcnair~ Report Number: [id number]: Total DLP = 517.00 mGy-cm CLINICAL HISTORY: RLQ pain, ?ovary v appendix CT abdomen and pelvis with contrast Comparison: US/SR - US OB PELVIC AND TRANSVAGINAL - 06/02/24 14:19 EST Findings: No consolidation or effusion. In the posterior right lobe of the liver there is a 2.6 cm hemangioma. Multiple small cysts are noted within the liver. Spleen, adrenal glands, pancreas and gallbladder normal. Kidneys are normal. No bowel obstruction, pneumoperitoneum, or pneumatosis. Tiny fat containing umbilical hernia. In the right ovary there is a 2.3 cm cyst, Suggesting an involuting corpus luteum cyst. Left ovary and uterus are unremarkable. Urinary bladder is normal. Appendix is normal. Trace free fluid in the pelvis. No acute fracture. IMPRESSION: 1. No acute findings. Normal appendix. 2. Incidental note of probable involuting corpus luteum cyst in the right ovary measuring 2.3 cm. 3. Incidental note of 2.6 cm liver hemangioma This document has been electronically signed by: Héctor Gamez MD on 01/20/2025 12:34:48 External Record Review External record reviewed: Inpatient record Prescription Management I considered prescription management with: Pain Medication Social Determinants Patient?s care significantly limited by Social Determinants of Health including: Other Social Determinant of Health Medications Administered Discontinued Medications Generic Name Dose Route Start Last Admin Trade Name Freq PRN Reason Stop Dose Admin Iohexol 100 ml 01/20/25 11:11 01/20/25 11:11 Iohexol 350 Mg/Ml 100 Ml Infus..Btl IV 01/20/25 11:12 85 ml ONCE ONE Administration Critical Care Time Critical Care Time Critical Care Time: No Discharge Plan Discharge Clinical Impression: Ovarian cyst Patient Disposition: Home, Self-Care Instructions: Ovarian Cyst (ED) Additional Instructions: Your blood work is reassuring. Your urine is negative for infection and . The CT scan of your abdomen shows a cyst to your right ovary and incidental finding of a liver hemangioma. The ultrasound of your pelvis shows a 1 cm cystic structure concerning for endometrioma versus adenexal cyst. It also shows two small fibroids in your uterus. Please follow up with OBGYN outpatient. I have provided you with a referral. Call them Wednesday morning to make an appointment. I recommend NSAIDs such as Motrin/ibuprofen for pain. Return with any new or worsening symptoms. In the case of an emergency call 911. Prescriptions: New ibuprofen 600 mg tablet 600 mg PO Q8H PRN (Reason: pain (scale score 4-6)) Qty: 30 0RF No Action cyclobenzaprine 10 mg tablet 10 mg PO TID PRN (Reason: muscle spasm) Qty: 14 0RF Referrals: PhysicianAutumn [Primary Care Provider, Medical] Fransisco Xie MD [Physician, CELLOPHANE WORKER] Referral Note: ?endometrioma Interventions: ED Discharge Assessment Last Done: 01/20/25 16:46 Discharge Date/Time: 01/20/25 17:00 Print Language: Benjy Curran
[2025-01-20 09:43] VITALS: BP 108/56; PULSE 60; RESP 16; TEMP 36.9; O2SAT 100
[2025-01-20 10:01] LABS: MANUAL DIFF FLAG NO
[2025-01-20 10:02] LABS: Hematocrit 33.4 % (37.0-47.0); Hemoglobin 11.2 g/dl (12.0-16.0); Imm Gran Abs Auto 0.01 X10*3/uL (0.00-0.03); Imm Gran Pct Auto 0.3 % (0.0-0.4); Lymphocytes Absolute Auto 1.3 X10*3/uL (1.2-4.9); Mean Corpuscular HGB Conc 33.5 g/dl (31.0-35.0); Mean Corpuscular Hemoglobin 26.4 pg (27.0-33.0); Mean Corpuscular Volume 78.8 fL (80.0-98.0); NRBC Abs Auto 0.000 X10*3/uL (0.0-0.012); NRBC Pct Auto 0.0 /100WBC (0.0-0.2); Platelet Count 228 X10*3/uL (160-400); Red Blood Count 4.24 X10*6/uL (4.20-5.50); White Blood Count 3.8 X10*3/uL (4.8-10.8)
[2025-01-20 10:04] LABS: UPreg QC Valid YES
[2025-01-20 10:04] LABS: Appearance Urine Clear; Glucose Urine UA Negative (Negative); PH 6.0 (5.0-9.0); Specific Gravity - Urine 1.015 (1.005-1.025)
[2025-01-20 10:50] LABS: Albumin Level 3.8 g/dL (3.5-5.0); Alkaline Phosphatase 71 U/L (39-117); Anion Gap 10 (12-20); Aspartate Amino Transferase 27 U/L (5-31); Blood Urea Nitrogen 8 mg/dL (9-16); Calcium 8.8 mg/dL (8.4-10.2); Carbon Dioxide 24 mmol/L (22-29); Chloride 108 mmol/L (96-108); Creatinine Clr Calc Pharmacy 84.2; Estimated Glomerular Filt Rate > 60; Lipase 32 U/L (8-78); Magnesium 1.8 mg/dL (1.6-2.6); Potassium 3.9 mmol/L (3.3-5.1); Sodium 138 mmol/L (135-145); Total Protein 7.0 g/dL (6.5-8.0)
[2025-01-20] MEDS: iohexoL 350 MG/ML 100 ML INFUS..BTL IV (11:11)
[2025-01-20 11:33] LABS: Alanine Aminotransferase 32 U/L (0-31)
[2025-01-20 13:06] VITALS: BP 117/62; PULSE 61; RESP 16; TEMP 36.7; O2SAT 100
[2025-01-20 16:23] LABS: CT PCR Urine NOT DETECTED (Not Detect.); NG PCR Urine NOT DETECTED (Not Detect.)
[2025-01-20 16:46] VITALS: BP 117/62; PULSE 61; RESP 16; TEMP 36.7; O2SAT 100
== END 2025-01-20 17:00 | disposition home or self-care (01) ==
PROVIDERS: Physician Assistant Medical; Emergency Provider Emergency Medicine
DX: N83.201 Unspecified ovarian cyst, right side (principal); D72.819 Decreased white blood cell count, unspecified; D50.8 Other iron deficiency anemias; R10.9 Unspecified abdominal pain
CPT/HCPCS: 36415; 74177; 76830; 76856; 80053; 81003; 81025; 83690; 83735; 84702; 85025; 87491; 87591; 93975; 99284; Q9967

== ENCOUNTER → 2025-01-20 10:08 | Outpatient (BNV) | payer MEDICAID, SELFPAY | PROVIDERS: Emergency Provider Emergency Medicine; Visit Provider Radiology Diagnostic Radiology | DX: D18.03 Hemangioma of intra-abdominal structures (principal); D25.1 Intramural leiomyoma of uterus | CPT/HCPCS: 74177; 93975 ==

== ENCOUNTER 2025-02-02 14:24 | Outpatient (REF) | payer MEDICAID, SELFPAY ==
--- OUTSIDE RECORDS SUMMARY | 2025-02-02 14:26 | XMS_ITS | Clinical Summary ---
Author Organization [employer] Address [address] [place] [address] Care Team Providers Care Maintenance Millwright Name Role Phone Unavailable Primary Care Provider Unavailabl e Allergies No known active allergies Medications acetaminophen (Tylenol 8 Hour) 650 MG ER tablet Take 1 tablet (650 mg) by mouth every 8 (eight) hours if needed for mild pain. Do not crush, chew, or split. 30 tablet 11/13/2024 Active ibuprofen 600 MG tablet Take 1 tablet (600 mg) by mouth 3 times daily. 30 tablet 11/13/2024 Active Active Problems Problem Noted Date Diagnosed Date Severe dental caries 11/13/2024 Pain, dental 11/13/2024 Encounters Date Type Department Care Team Description 11/13/2024 10:30 AM EDT Office Visit [facility] [address] [place] [address] Tho Barr DDS Severe dental caries (Primary Dx); Pain, dental from Last 3 Months Social History Tobacco Use Types Packs/Day Years Used Date Smoking Tobacco: Never Smokeless Tobacco: Never Tobacco Cessation:Counseling Given: Not Answered Alcohol Use Standard Drinks/Week Comments Never 0 (1 standard drink = 0.6 oz pur e alcohol) Comments Unknown Sex and Gender Information Value Date Recorded Sex Assigned at Female 11/29/2023 6:27 PM EDT Legal Sex Female 3:56 PM EDT Gender Identity Female 11/29/2023 6:27 PM EDT Sexual Orientation Straight 11/29/2023 6: 27 PM EDT Last Filed Vital Signs Vital Sign Reading Time Taken Comments Blood Pressure 120/68 11/13/2024 10:30 AM EDT Pulse - - Temperature - - Respiratory Rate - - Oxygen Saturation - - Inhaled Oxygen Concentration - - Weight - - Height - - Body Mass Index - - Plan of Treatment Health Maintenance Due Date Last Done Comments Dental Oral Exam 1983 Dental Prophylaxis 1983 Dental X-Ray: Full Mouth 1983 Depression Screening 1983 HIV Screening 1983 SDOH Screening 1983 Disability Screening 1983 Alcohol/Substance Use Screening 1995 Family Planning (PISQ) 1998 HPV Vaccines (1 - 3-dose series) 1998 Hepatitis C Screening 2001 DTaP/Tdap/Td Vaccines (1 - Tdap) 2002 Hepatitis B Vaccines (1 of 3 - 19+ 3-dose series) 2002 Pap Smear 01/09/2004 Cervical Cancer Screening 2013 HPV/Cotest 2013 Mammogram 2023 COVID-19 Vaccine (1 - 2023-2 5 season) 2024 Influenza Vaccine (#1) 2025 Dental X-Ray: Bitewings 09/29/2025 09/28/2024 Tobacco Screening 11/13/2025 11/13/2024 Zoster Vaccines (1 of 2) 2033 RSV Patients and Pa tients Aged 60 years or older (1 - 1-dose 75+ series) 2058 HIB Vaccines Aged Out No longer eligi ble based on patient's age to complete this topic Hepatitis A Vaccines Aged Out No long er eligible based on patient's age to complete this topic IPV Vaccines Aged Out No longer eligi ble based on patient's age to complete this topic Meningococcal B Vaccine Aged Out No l onger eligible based on patient's age to complete this topic Meningococcal Vaccine Aged Out No ilya quintin eligible based on patient's age to complete this topic Pneumococcal Vaccine: Pediat rics (0 to 5 Years) and At-Risk Patients (6 to 49) Years Aged Out No longer eligi ble based on patient's age to complete this topic RSV under 20 months Aged Out No longe r eligible based on patient's age to complete this topic Rotavirus Vaccines Aged Out No longer eligible based on patient's age to complete this topic Procedures Procedure Name Priority Date/Time Associated Diagnosis Comments CASE PRESENTATION, DETAILED AND EXTENSIVE TREATMENT PLANNING Routine 11/13/2024 10:30 AM EDT 1 EXTRACTION, ERUPTED TOOTH OR EXPOSED ROOT (ELEVATION/FORCEPS REMOVAL) Routine 11/13/2024 10:30 AM EDT BITEWING - SINGLE RADIOGRAPHIC IMAGE Routine 09/28/2024 10:30 AM EDT Dental caries Dental abscess from Last 3 Months or Most Recently Relevant to Health Maintenance Insurance [facility] C3 DENTAL-[facility] MEDICAID STAND ADULT
== END 2025-02-02 14:25 | disposition home or self-care (01) ==
LOC: HO.MAMMO 14:24
PROVIDERS: Visit Provider Obstetrics & Gynecology
DX: Z12.31 Encounter for screening mammogram for malignant neoplasm of breast (principal)
CPT/HCPCS: 77063; 77067

== ENCOUNTER → 2025-02-02 14:28 | Outpatient (BNV) | payer MEDICAID, SELFPAY | PROVIDERS: Visit Provider Internal Medicine | DX: Z12.31 Encounter for screening mammogram for malignant neoplasm of breast (principal) | CPT/HCPCS: 77063; 77067 ==

== ENCOUNTER 2025-02-06 10:01 | Outpatient (AMB) | payer MEDICAID, SELFPAY ==
--- NOTE | 2025-02-06 10:04 | A.OFFVIS_ITS ---
Intake Visit Reasons: ER follow up Allergies No Known Allergies Allergy (Verified 01/20/25 09:15) HPI Comments Details: Presenting is ED follow-up. The patient is complaining of irregular menstrual cycles associated with passage of blood clots and pelvic cramping. In the emergency room on 01/20/2025, H and H was 11.2/33.4, hCG was less than 2 Na pelvic ultrasound was done which showed the following: Anteverted uterus is 9.3 cm length. In the left side of the uterus there are 2 adjacent myometrial masses, 1 measuring 1.0 cm in the other measuring 0.9 cm, near the fundus. These are consistent with small uterine fibroids. Adjacent to the fundus of the uterus there is a predominantly anechoic 1.0 cm cystic structure. There are a few tiny subcentimeter cysts within the myometrium. Junctional zone is well demarcated. Endometrium 11 mm thickness. Right ovary 4.1 x 2.8 x 3.8 cm. Normal follicles and incidentally noted 2 cm corpus luteum cyst. Left ovary 4.1 x 1.6 x 1.5 cm. Normal morphology, small follicles. Normal color Doppler with arterial/venous spectral tracing of both ovaries. Trace free fluid. IMPRESSION: 1. No evidence of ovarian torsion. 2. There are 2 small intrauterine fibroids. 3. Cystic 1.0 cm structure adjacent to uterine fundus which could be a degenerated pedunculated fibroid, Endometrioma or an adnexal cyst. Last screening mammogram in 02/02, results are still pending [facility] Medical History History of miscarriage Family History Sister HTN (hypertension) Diabetes Social History Household Members: Spouse Household Members Other:: son Housing Other:: nursing home Alcohol intake: never Patient Tobacco Use Status: Never used Tobacco Current occupational status: unemployed Sexual orientation: Straight/Heterosexual Gender identity: Female Review of Systems Const All systems reviewed & are unremarkable except as noted in HPI and below Card Reports as per HPI Resp Reports as per HPI GI Reports as per HPI and Reports no additional complaints Reports as per HPI Physical Exam Const General: cooperative, healthy appearing and comfortable Chest Chest palpation & inspection: normal inspection of the chest and normal palpation of entire chest wall Breast/axilla inspection: normal inspection of the breasts and normal inspection of the axillae Breast/axilla palpation: normal palpation of the breasts, normal palpation of the axillae and no axillary lymphadenopathy Resp Effort & Inspection: normal respiratory effort Auscultation: clear to auscultation bilaterally Percussion: percussion normal Cardio Palpation: normal PMI Rate: regular rate Rhythm: regular rhythm Heart sounds: no murmurs and no rubs Peripheral pulses: Peripheral pulses 2+ throughout GI Inspection: Yes normal to inspection Palpation (GI): Soft to palpation, nontender, no guarding, not rigid and No hepatosplenomegaly present Percussion: Yes normal to percussion Auscultation: normal bowel sounds Rectal Exam - Female: deferred General: Yes bladder normal to palpation External Female Exam: No lesion Speculum Exam - Vagina: normal appearance of the vagina, normal palpation, normal vaginal discharge and not erythematous Speculum Exam - Cervix: normal appearance of the cervix and normal palpation Bimanual exam- vagina & uterus: normal bimanual exam, normal palpation, uterine size normal, bladder normal to palpation, consistency normal and normal palpation Bimanual Exam- Adnexa, other: normal adnexae, no masses and no tenderness Assessment & Plan Assessment & Plan (1) Abnormal uterine bleeding: Code(s): N93.9 - Abnormal uterine and vaginal bleeding, unspecified Category: Medical Plan: Co testing done, GC and chlamydia taken CBC, TSH, HCG, ordered. Discussed with the patient the different causes of abnormal bleeding including thyroid disorders, uterine and ovarian pathology, endometrial hyperplasia, carcinoma and other potential causes. Discussed with the patient the work up including CBC (to r/o anemia), TSH, pelvic Ultrasound, endometrial biopsy to r/o endometrial pathology. All questions answered and the patient verbalized understanding. Instructed the patient to schedule an appointment for an endometrial biopsy in 2 weeks. (2) Ovarian cyst: Code(s): N83.209 - Unspecified ovarian cyst, unspecified side Category: Medical Plan: Discussed with the patient the finding on ultrasound possible ovarian cyst versus myoma, will order pelvic MRI. Instructions given the patient to schedule an MRI and a follow-up appointment (3) Uterine myoma: Code(s): D25.9 - Leiomyoma of uterus, unspecified Category: Medical Plan: Discussed with the patient the findings on pelvic ultrasound & the risk of myosarcoma; in addition reviewed with the patient that malignancy and pre malignancy cannot be ruled out without hysterectomy for pathological evaluation ; furthermore, explained to the patient the limitation of pelvic ultrasound and endometrial biopsy in the setting. Discussed with the patient the typical symptoms that are caused by myomas including but not limited to pelvic pain, pressure symptoms, abnormal uterine bleeding. In addition discussed with the patient options of treatment for myomas including: Serial ultrasounds periodically to follow-up on the size of the myoma while targeting the treatment against fibroids related symptoms ( control pills, Mirena IUD, progesterone treatment, GnRH agonist/antagonist, uterine artery embolization or endometrial ablation) versus surgical treatment including hysterectomy and or myomectomy. All pros and cons, risks and benefits of all options were discussed with the patient. The patient understands that delay in surgical treatment in case of myosarcoma can affect her prognosis, after further discussion, the patient decided to think about it and get back to us next visit Orders: Orders TSH reflex Free T4 Today N93.9 - Abnormal uterine and vaginal bleeding, unspecified Prolactin Today N93.9 - Abnormal uterine and vaginal bleeding, unspecified HCG Quantitative Today N93.9 - Abnormal uterine and vaginal bleeding, unspecified MR pelvis wo/w con Today N83.299 - Other ovarian cyst, unspecified side Complete Blood Count no Diff Today N93.9 - Abnormal uterine and vaginal bleeding, unspecified Coding Level of Care Code Est Pt Level 3 (30396) Diagnoses Abnormal uterine bleeding N93.9 Ovarian cyst N83.209 Uterine myoma D25.9
--- OUTSIDE RECORDS SUMMARY | 2025-02-06 10:45 | XMS_ITS | Clinical Summary ---
Author Organization [employer] Address [address] [place] [address] Care Team Providers Care Hair Or Beauty Salon Assistant Name Role Phone Unavailable Primary Care Provider [...] Description 11/13/2024 10:30 AM EDT Office Visit [facility] [address] [place] [address] Tho Barr DDS Severe dental caries (Primary [...] Most Recently Relevant to Health Maintenance Insurance [facility] C3 DENTAL-[facility] MEDICAID STAND ADULT
== END 2025-02-06 10:54 | disposition home or self-care (01) ==
LOC: HO.HWS 10:01
PROVIDERS: Visit Provider Obstetrics & Gynecology
DX: N93.9 Abnormal uterine and vaginal bleeding, unspecified (principal); N83.209 Unspecified ovarian cyst, unspecified side; D25.9 Leiomyoma of uterus, unspecified
CPT/HCPCS: 99213

== ENCOUNTER 2025-02-06 10:01 | Outpatient (REF) | payer MEDICAID, SELFPAY ==
[2025-02-06 10:46] LABS: Hematocrit 31.3 % (37.0-47.0); Hemoglobin 10.5 g/dl (12.0-16.0); Mean Corpuscular HGB Conc 33.5 g/dl (31.0-35.0); Mean Corpuscular Hemoglobin 26.7 pg (27.0-33.0); Mean Corpuscular Volume 79.6 fL (80.0-98.0); NRBC Abs Auto 0.000 X10*3/uL (0.0-0.012); NRBC Pct Auto 0.0 /100WBC (0.0-0.2); Platelet Count 214 X10*3/uL (160-400); Red Blood Count 3.93 X10*6/uL (4.20-5.50); White Blood Count 3.9 X10*3/uL (4.8-10.8)
== END 2025-02-06 10:02 | disposition home or self-care (01) ==
LOC: HO.LAB 10:01
PROVIDERS: Visit Provider Obstetrics & Gynecology
DX: Z01.411 Encounter for gynecological examination (general) (routine) with abnormal findings (principal); O03.9 Complete or unspecified spontaneous abortion without complication; N93.9 Abnormal uterine and vaginal bleeding, unspecified; N83.11 Corpus luteum cyst of right ovary; D25.9 Leiomyoma of uterus, unspecified; Z11.8 Encounter for screening for other infectious and parasitic diseases; Z11.2 Encounter for screening for other bacterial diseases
CPT/HCPCS: 36415; 84146; 84443; 84702; 85027; 99212

== ENCOUNTER 2025-02-06 11:34 | Outpatient (REF) | payer MEDICAID, SELFPAY ==
[2025-02-06 16:11] LABS: CT PCR NOT DETECTED (Not Detect.); NG PCR NOT DETECTED (Not Detect.)
== END 2025-02-06 11:35 | disposition home or self-care (01) ==
LOC: HO.LNP 11:34
PROVIDERS: Visit Provider Obstetrics & Gynecology
DX: Z01.419 Encounter for gynecological examination (general) (routine) without abnormal findings (principal); N93.9 Abnormal uterine and vaginal bleeding, unspecified
CPT/HCPCS: 87491; 87591

== ENCOUNTER 2025-02-20 14:24 | Outpatient (AMB) | payer MEDICAID, SELFPAY ==
[2025-02-20 14:38] VITALS: BMI 23.9
--- NOTE | 2025-02-20 14:38 | A.OFFVIS_ITS ---
Vital Signs 02/20/25 14:38 Height 5 ft 3 in Weight 135 lb BMI 23.9 Intake Visit Reasons: EMB Hr Administrative Assistant Required: Yes Hr Administrative Assistant Language: Brazilian Bina Hr Administrative Assistant Services: Hr Administrative Assistant Present (W[place]) Hr Administrative Assistant Name: Fawn # [id number] Information Interpreted: non-clinical & clinical Consultant Technology: Consultant Technology Present (Cici [employer]) Accompanied by: Self / Same As Patient Allergies No Known Allergies Allergy (Verified 02/20/25 14:51) HPI Comments Details: Presenting for follow-up TSH, prolactin within normal H&H= 10.5/31.3 HCG 6548 on 02/06 [facility] Medical History History of miscarriage Family History Sister HTN (hypertension) Diabetes Social History Household Members: Spouse Household Members Other:: son Housing Other:: [facility] Alcohol intake: never Patient Tobacco Use Status: Never used Tobacco Current occupational status: unemployed Sexual orientation: Straight/Heterosexual Gender identity: Female Review of Systems Const All systems reviewed & are unremarkable except as noted in HPI and below Reports as per HPI and Reports no additional complaints GI Reports no additional complaints Reports no additional complaints Physical Exam Vital Signs: BMI result Body Mass Index 23.9 Results AMB Test Urine AMB Test Urine Positive Last Edit by Cici Jarvis CMA on 14:59 Results Reviewed Results Reviewed: Laboratory Last Values Tst Clinic Positive 02/20/25 14:58 Assessment & Plan Assessment & Plan (1) Early stage of : Code(s): Z34.90 - Encounter for supervision of normal , unspecified, unspecified trimester Category: Medical Plan: Discussed with the patient the hCG level, will order OB ultrasound stat for documentation of IUP and viability. vitamin tablet p.o. q.d. instructions given to patient to take no other medications other than vitamin SAB/ectopic warnings given to patient she is to call or go to emergency room in case of cramping and or bleeding and follow-up tomorrow after the ultrasound is complete Questions answered, the patient verbalized understanding Orders: Orders US OB <= 14 weeks fetus Today Z34.90 - Encounter for supervision of normal , unspecified, unspecified trimester AMB HCG Urine Test Today Z32.01 - Encounter for test, result positive Coding Level of Care Code Est Pt Level 3 (42989) Diagnoses Early stage of Z34.90
--- OUTSIDE RECORDS SUMMARY | 2025-02-20 15:18 | XMS_ITS | Clinical Summary ---
Author Organization [employer] Address [address] [place] [address] Care Team Providers Care Change Advisor Name Role Phone Unavailable Primary Care Provider [...] Severe dental caries 11/13/2024 Pain, dental 11/13/2024 Social History Tobacco Use Types Packs/Day Years [...] Procedure Name Priority Date/Time Associated Diagnosis Comments BITEWING - SINGLE RADIOGRAPHIC IMAGE Routine 09/28/2024 10:30 AM EDT Dental caries Dental abscess from Last 3 Months or Most Recently Relevant to Health Maintenance [facility] MEDICAID STAND ADULT
== END 2025-02-20 15:15 | disposition home or self-care (01) ==
LOC: HO.HWS 14:24
PROVIDERS: Visit Provider Obstetrics & Gynecology
DX: Z32.01 Encounter for pregnancy test, result positive (principal); Z34.90 Encounter for supervision of normal pregnancy, unspecified, unspecified trimester
CPT/HCPCS: 99213

== ENCOUNTER 2025-02-21 15:29 | Outpatient (REF) | payer MEDICAID, SELFPAY ==
--- NOTE | ~2025-02-21 | US_ITS ---
EXAMINATION: US OBSTETRICAL ULTRASOUND CLINICAL INFORMATION: early stage COMPARISON: None available. LMP: 01/03/2025. Gestational age by maternal dates is 7 weeks 0 days. Estimated date of delivery by maternal dates is 10/10/2025. TECHNIQUE: Transabdominal imaging of pelvis is performed. FINDINGS: There is a single intrauterine gestational sac with visible yolk sac, embryo/fetus, and cardiac activity. There is small subchorionic hemorrhage or hematoma measuring 1.7 x 1.5 x 1.7 cm. HR: 152 beats per minute. CRL (crown rump length): 1.16 cm (7 weeks 3 days +/- 4 days). SISSY (estimated date of delivery): 10/07/2025 +/- 4 days. MATERNAL ADNEXA: The right maternal ovary measures 5.1 x 3.6 x 3.7 cm. There is a small corpus luteal cyst measuring 2.9 x 2.2 x 2.5 cm The left maternal ovary measures 4.2 x 1.2 x 1.6 cm. No focal lesion seen There is no significant maternal adnexal mass. No maternal pelvic ascites. US/US OB <= 14 weeks fetus IMPRESSION: 1. Single live intrauterine gestation with ultrasound gestational age of 7 weeks and 3 days +/- 4 days. 2. Estimated date of delivery is 03/09/2026 +/- 4 days. 3. Small subchorionic bleed measuring 1.7 cm. 4. Corpus luteal cyst right ovary. Electronically signed by: Mckay You MD 02/22/2025 07:15 AM EDT
== END 2025-02-21 15:30 | disposition home or self-care (01) ==
LOC: HO.US 15:29
PROVIDERS: Visit Provider Obstetrics & Gynecology
DX: Z34.90 Encounter for supervision of normal pregnancy, unspecified, unspecified trimester (principal)
CPT/HCPCS: 76801; 81025; 99212

== ENCOUNTER → 2025-02-21 15:31 | Outpatient (BNV) | payer MEDICAID, SELFPAY | PROVIDERS: Visit Provider Radiology Diagnostic Radiology | DX: Z3A.01 Less than 8 weeks gestation of pregnancy (principal) | CPT/HCPCS: 76801 ==

== ENCOUNTER 2025-02-28 14:37 | Outpatient (AMB) | payer MEDICAID, SELFPAY ==
--- NOTE | 2025-02-28 14:40 | A.OFFVIS_ITS ---
Intake Visit Reasons: ultrasound results Equalizing Saw Operator Required: Yes Equalizing Saw Operator Language: Cymro Creerin Equalizing Saw Operator Services: Equalizing Saw Operator Present ([employer] machine) Equalizing Saw Operator Name: Cate Prescott [id number] Information Interpreted: clinical only Accompanied by: Self / Same As Patient Allergies No Known Allergies Allergy (Verified 02/20/25 14:51) HPI Comments Details: Presenting for follow up ultrasound with no complaints no pelvic cramping and or bleeding. On vitamin 1 tablet p.o. q.d. 02/21/25 OB US showed the following: There is a single intrauterine gestational sac with visible yolk sac, embryo/fetus, and cardiac activity. There is small subchorionic hemorrhage or hematoma measuring 1.7 x 1.5 x 1.7 cm. HR: 152 beats per minute. CRL (crown rump length): 1.16 cm (7 weeks 3 days +/- 4 days). SISSY (estimated date of delivery): 10/07/2025 +/- 4 days. MATERNAL ADNEXA: The right maternal ovary measures 5.1 x 3.6 x 3.7 cm. There is a small corpus luteal cyst measuring 2.9 x 2.2 x 2.5 cm The left maternal ovary measures 4.2 x 1.2 x 1.6 cm. No focal lesion seen There is no significant maternal adnexal mass. No maternal pelvic ascites. US/US OB <= 14 weeks fetus IMPRESSION: 1. Single live intrauterine gestation with ultrasound gestational age of 7 weeks and 3 days +/- 4 days. 2. Estimated date of delivery is 03/09/2026 +/- 4 days. 3. Small subchorionic bleed measuring 1.7 cm. 4. Corpus luteal cyst right ovary. [facility] Medical History History of miscarriage Family History Sister HTN (hypertension) Diabetes Social History Household Members: Spouse Household Members Other:: son Housing Other:: alf Alcohol intake: never Patient Tobacco Use Status: Never used Tobacco Current occupational status: unemployed Sexual orientation: Straight/Heterosexual Gender identity: Female Review of Systems Const All systems reviewed & are unremarkable except as noted in HPI and below Reports as per HPI and Reports no additional complaints GI Reports no additional complaints Reports no additional complaints Assessment & Plan Assessment & Plan (1) Early stage of : Code(s): Z34.90 - Encounter for supervision of normal , unspecified, unspecified trimester Category: Medical Plan: Discussed with the patient the results of the ultrasound with subchorionic hemorrhage. SAB warnings given to patient, instructions given to patient to call in case of pelvic cramping and or bleeding. vitamin 1 tablet p.o. q.d. Instructions given the patient to schedule a follow-up appointment for initial care visit, but the patient is interested in transferring her care to [facility], will call and set up an appointment. Instructions given the patient to call in case she does not have an appointment within 3 weeks since she is 40 years of age with increased risk of congenital /chromosome anomalies and is a candidate for genetic screening/diagnostic testing around 12 weeks of gestation. Explained to the patient that any delay in care can affect the outcome. All questions answered, the patient verbalized understanding and stated that she will call back for an appointment in case she does not have access to care at [facility] for initiating care. Coding Level of Care Code Est Pt Level 3 (11874) Diagnoses Early stage of Z34.90
--- OUTSIDE RECORDS SUMMARY | 2025-02-28 15:33 | XMS_ITS | Clinical Summary ---
Author Organization [employer] Address [address] [place] [address] Care Team Providers Care District Director Name Role Phone Unavailable Primary Care Provider [...] Most Recently Relevant to Health Maintenance [facility]
== END 2025-02-28 15:23 | disposition home or self-care (01) ==
LOC: HO.HWS 14:37
PROVIDERS: Visit Provider Obstetrics & Gynecology
DX: Z34.90 Encounter for supervision of normal pregnancy, unspecified, unspecified trimester (principal)
CPT/HCPCS: 99213

== ENCOUNTER → 2025-02-28 14:37 | Outpatient (BNVA) | payer MEDICAID, SELFPAY | PROVIDERS: Visit Provider Obstetrics & Gynecology | DX: O34.81 Maternal care for other abnormalities of pelvic organs, first trimester (principal); N83.11 Corpus luteum cyst of right ovary; O20.8 Other hemorrhage in early pregnancy; Z3A.01 Less than 8 weeks gestation of pregnancy; Z59.01 Sheltered homelessness | CPT/HCPCS: 99212 ==

== ENCOUNTER 2025-03-14 15:41 | Outpatient (AMB) | payer MEDICAID, SELFPAY ==
--- NOTE | 2025-03-14 15:42 | A.OFFVIS_ITS ---
Intake Visit Reasons: follow up Allergies No Known Allergies Allergy (Verified 02/20/25 14:51) HPI Comments Details: The patient is scheduled a telehealth visit to discuss MRI, patient was scheduled for pelvic MRI after the finding of the phone an ultrasound done in 02/01 prior to : Anteverted uterus is 9.3 cm length. In the left side of the uterus there are 2 adjacent myometrial masses, 1 measuring 1.0 cm in the other measuring 0.9 cm, near the fundus. These are consistent with small uterine fibroids. Adjacent to the fundus of the uterus there is a predominantly anechoic 1.0 cm cystic structure. There are a few tiny subcentimeter cysts within the myometrium. Junctional zone is well demarcated. Endometrium 11 mm thickness. Right ovary 4.1 x 2.8 x 3.8 cm. Normal follicles and incidentally noted 2 cm corpus luteum cyst. Left ovary 4.1 x 1.6 x 1.5 cm. Normal morphology, small follicles. Normal color Doppler with arterial/venous spectral tracing of both ovaries. Trace free fluid. IMPRESSION: 1. No evidence of ovarian torsion. 2. There are 2 small intrauterine fibroids. 3. Cystic 1.0 cm structure adjacent to uterine fundus which could be a degenerated pedunculated fibroid, Endometrioma or an adnexal cyst. [facility] Medical History History of miscarriage Family History Sister HTN (hypertension) Diabetes Social History Household Members: Spouse Household Members Other:: son Housing Other:: residential Alcohol intake: never Patient Tobacco Use Status: Never used Tobacco Current occupational status: unemployed Sexual orientation: Straight/Heterosexual Gender identity: Female Review of Systems Const All systems reviewed & are unremarkable except as noted in HPI and below Reports as per HPI and Reports no additional complaints GI Reports no additional complaints Reports no additional complaints Telehealth Telehealth Telehealth Platform: Telephone Location of provider rendering services: practice address Location of patient: address on file Patient Identification confirmed using: Name, : Yes Telehealth method: voice only Patient verbally consented to treatment: Yes Patient verbally consented to billing insurance company: Yes Patient informed of any privacy concerns related to visit: Yes Minutes spent on Phone/Video with Pt.: 8 Assessment & Plan Assessment & Plan (1) Adnexal cyst: Comment: possible degenerated myoma vs endometrioma vs adnexal cyst Code(s): N94.9 - Unspecified condition associated with female genital organs and menstrual cycle Category: Medical Plan: Discussed with the patient that MRI was canceled since the patient is , the patient will be mailed a copy of the report to discuss with her OBGYN exam during care. Since multiple pelvic ultrasounds will be done during this will be an opportunity to determine and differentiate cause of t his finding. Instructions given to patient to call in case was not able to have access to care quant backup further management. All questions answered, the patient verbalized understanding especially the urgency of her clinical situation and agreed with the plan I spent a total of 20 minutes reviewing the chart, talking to the patient via phone and documenting in the medical record. Discussion with running phone dredge worker number [phone] LEFTY Coding Level of Care Code Tele Est Pt Level 3 (52446) Diagnoses Adnexal cyst N94.9
== END 2025-03-14 16:06 | disposition home or self-care (01) ==
LOC: HO.HWS 15:41
PROVIDERS: Visit Provider Obstetrics & Gynecology
DX: N94.9 Unspecified condition associated with female genital organs and menstrual cycle (principal)
CPT/HCPCS: 99213

== ENCOUNTER 2025-06-06 09:24 | Emergency (ER) | payer MEDICAID, SELFPAY ==
[2025-06-06 09:31] VITALS: BP 111/56; PULSE 78; RESP 16; TEMP 36.9; O2SAT 98; BMI 29.1
--- NOTE | 2025-06-06 10:03 | ED_ITS ---
HPI - Abdominal Pain General Chief Complaint: Abdominal Pain Stated Complaint: cough 3 days, pt is Time Seen by Provider: 06/06/25 10:02 Source: patient and RN notes reviewed Mode of arrival: ambulatory Limitations: language barrier History of Present Illness ED Provider: Myriam Leung PA-C HPI narrative: This is a 40-year-old [place] Island[place] Creole speaking female, (G10, P6, 3,6) who presents emergency department with intermittent lower abdominal pain, pressure and cramping x3 days. Patient reports that the pain starts in her lower abdomen and occasionally radiates down both of her legs. She denies any urinary symptoms. She does express increased vaginal itching which she states she was already seen for but was treated with a medication over a month ago. She is unsure what this infection was. Patient denies any fevers, chills, chest pain, shortness of breath. She also endorses she has had a cough with congestion for the last several days. She has been seen by OBGYN, she has a follow-up appointment on June 12. She does have a confirmed IUP, reports that she is unsure how far along she is however was told that she is due October 10 (this would make her around 21 weeks) No other complaints or concerns at this time. MD elicited complaint: abdominal pain Onset (ago): day(s) Pain Consistency: intermittent Quality: cramping Radiation: none Migration to: no migration Exacerbating factors: nothing Relieving factors: nothing Associated symptoms: denies other symptoms Related Data Previous Rx's ?Medication ?Instructions ?Recorded cyclobenzaprine 10 mg tablet 10 mg PO TID PRN muscle s pasm #14 12/11/24 tabs ibuprofen 600 mg tablet 600 mg PO Q8H PRN pain (scal e 01/20/25 score 4-6) #30 tabs ferrous sulfate 325 mg (65 mg 325 mg PO BID 45 days #9 0 tabs 02/08/25 iron) tablet,delayed release Allergies Allergy/AdvReac Type Severity Reaction Status Date / Time No Known Allergies Allergy Verified 06/06/25 09:37 Review of Systems Review of Systems Constitutional : No Fever, No Chills ENT/Mouth : No sore throat, No Rhinorrhea Eyes: No Eye Pain, No Swelling, No Redness Cardiovascular : No Chest Pain, No SOB Respiratory : No Cough, No Sputum Gastrointestinal : No Nausea, No Vomiting, No Diarrhea, + abdominal Pain Genitourinary : No Dysuria, No Hematuria Musculoskeletal : No joint pain, No Myalgias, No Joint Swelling Skin : No Skin Lesions Neuro : No Weakness, No Numbness, No Headache All other systems reviewed and are negative Yes all other systems are reviewed and are negative Constitutional: Reports as per [facility] Past Medical History Medical History History of miscarriage Family History Family History Sister HTN (hypertension) Diabetes Social History Social History Household Members: Spouse Household Members Other:: son Housing Other:: correction Alcohol intake: never Patient Tobacco Use Status: Never used Tobacco Smoked in Last 30 Days: No Use of substances other than those prescribed or required for medical reasons: No Advance Directives: No Advance Directives Information Provided: No Do you have a plan to hurt others: No Plan Patient : No Current occupational status: unemployed Sexual orientation: Straight/Heterosexual Gender identity: Female Physical Exam ED Vital Signs: Vital Signs - 24 hr 06/06/25 09:31 Temperature 98.5 F Pulse Rate 78 Respiratory Rate 16 Blood Pressure 111/56 L Pulse Oximetry 98 Oxygen Delivery Method Room Air BMI result Body Mass Index 29.1 Const General: cooperative, comfortable and no acute distress Orientation/consciousness: patient oriented x3 Limitations: no limitations HENMT Head: Yes normal to inspection, Yes normocephalic and Yes atraumatic Ears: hearing grossly normal bilaterally General nose exam: Normal external nose present Face and sinus: Yes normal facial exam Mouth: Normal oral and palatal mucosa present, oropharynx normal and moist mucous membranes Throat: Yes posterior oropharynx normal Eyes General: appearance normal, both eyes and all related structures Eyelids: Yes eyelids normal Conjunctivae: conjunctivae normal Sclerae: sclerae normal Pupils: Equal, round and reactive pupils present EOM: EOMs intact bilaterally Neck Neck: Yes normal visual inspection, Yes full ROM and Yes no lymphadenopathy Lymphatic: no lymphadenopathy noted Chest Chest palpation & inspection: normal inspection of the chest Resp Effort & Inspection: normal respiratory effort and able to speak in complete sentences Auscultation: clear to auscultation bilaterally, no crackles, no rales, no rhonchi and no wheezes Cardio Rate: regular rate Rhythm: regular rhythm Heart sounds: S1 normal heart sound present and S2 normal heart sound present GI Other: Abdomen is soft, with mild tenderness palpation in the suprapubic region. No rebound or guarding. Inspection: Yes normal to inspection Skin General skin exam: no rashes or lesions noted Trauma: no lacerations or abrasions Wounds: no wounds Neuro General: patient oriented x3 and moves all extremities Cranial nerves: Yes Equal, round and reactive pupils present Extrem General: Yes normal to inspection Right upper extremity: normal to inspection Left upper extremity: normal to inspection Right lower extremity: normal to inspection Left lower extremity: normal to inspection Medical Decision Making Medical Decision Making MDM Narrative: This is a 40-year-old [place] Creole speaking female who presents emergency department with concerns of lower abdominal pain which started 3 days ago. Patient states that the pain is intermittent and cramping like in nature. She denies any abnormal vaginal discharge or bleeding. She also endorses she has been sick with cold-like symptoms, states that she has had a cough and congestion. On arrival, BP at 111/56 all other vital signs within normal limits. She is speaking full sentences under no acute distress. Abdomen is soft however with tenderness palpation in the suprapubic region. heart tones strong and regular at 144 beats per minute. 10:34 AM 06/06/2025 (Myriam Leung PA-C): Called over to [facility] and spoke to a assessment manager, Leah, they will call back with a 4th year resident for possible transfer. We are unable to assess patient any further as patient is already 22 weeks +6 days. 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 Pt does report that this is her 10th and has 6 living children. 11:10 AM 06/06/2025 (Myriam Leung PA-C): Spoke to 4th Linda your OB resident, recommending transfer to [facility]. Transfer of care initiated. Differential Diagnosis Differential Diagnoses: The differential diagnosis associated with the presentation includes Threatened , complete , UTI, abdominal pain and Lab Data 06/06/25 09:53 06/06/25 09:53 Labs: Lab Results 06/06/25 Range/Units 09:53 WBC 6.6 (4.8-10.8) X10*3/uL RBC 3.97 L (4.20-5.50) X10*6/uL Hgb 10.0 L (12.0-16.0) g/dl Hct 31.2 L (37.0-47.0) % MCV 78.6 L (80.0-98.0) fL MCH 25.2 L (27.0-33.0) pg MCHC 32.1 (31.0-35.0) g/dl RDW 14.1 (11.0-16.0) % Plt Count 249 (160-400) X10*3/uL MPV 10.1 (9.4-12.3) fL Immature Gran % (Auto) 0.5 H (0.0-0.4) % Neut % (Auto) 65.5 (45-73) % Lymph % (Auto) 22.3 (20-40) % [place] % (Auto) 10.1 (2-11) % Eos % (Auto) 1.1 (0-4) % Baso % (Auto) 0.5 (0-2) % Lymph # (Auto) 1.5 (1.2-4.9) X10*3/uL [place] # (Auto) 0.7 (0.1-1.2) X10*3/uL Eos # (Auto) 0.1 (0.0-0.4) X10*3/uL Baso # (Auto) 0.0 (0.0-0.2) X10*3/uL Abs Immat Gran (auto) 0.03 (0.00-0.03) X10*3/uL Absolute Neuts (auto) 4.4 (2.0-8.3) x10*3/uL Absolute Nucleated RBC 0.000 (0.0-0.012) X10*3/uL Nucleated RBC % (auto) 0.0 (0.0-0.2) /100WBC Sodium 136 (135-145) mmol/L Potassium 3.5 (3.3-5.1) mmol/L Chloride 108 (96-108) mmol/L Carbon Dioxide 22 (22-29) mmol/L Anion Gap 10 L (12-20) BUN 7 L (9-16) mg/dL Creatinine 0.57 (0.5-1.4) mg/dL Estim Creat Clear Calc 110.6 Estimated GFR > 60 Random Glucose 80 (60-115) mg/dL Calcium 8.6 (8.4-10.2) mg/dL Magnesium 1.7 (1.6-2.6) mg/dL Total Bilirubin 0.5 (0.0-1.0) mg/dL AST 16 (5-31) U/L ALT 6 (0-31) U/L Alkaline Phosphatase 50 (39-117) U/L Total Protein 6.3 L (6.5-8.0) g/dL Albumin 3.2 L (3.5-5.0) g/dL Beta HCG, Quant 72864 mIU/mL Critical Care Time Critical Care Time Critical Care Time: Yes Total Critical Care Time: 35 Attestation: I have personally provided critical care time exclusive of time spent on separately billable procedures. Time includes review of lab data, radiology results, discussion with consultants, and monitoring for potential decompensation. Intervention performed as documented. Discharge Plan Discharge Clinical Impression: Abdominal pain affecting Patient Disposition: [facility] Transfer Details: Kary Monge (WE2) Dr. Mary Anne Herron Prescriptions: No Action ferrous sulfate 325 mg (65 mg iron) tablet,delayed release (DR/EC) 325 mg PO BID 45 Days Qty: 90 0RF cyclobenzaprine 10 mg tablet 10 mg PO TID PRN (Reason: muscle spasm) Qty: 14 0RF ibuprofen 600 mg tablet 600 mg PO Q8H PRN (Reason: pain (scale score 4-6)) Qty: 30 0RF Referrals: Fransisco Xie MD [Physician, [employer] OPERATOR] Print Language: [place] Creole
[2025-06-06 10:20] LABS: MANUAL DIFF FLAG NO
[2025-06-06 10:22] LABS: Hematocrit 31.2 % (37.0-47.0); Hemoglobin 10.0 g/dl (12.0-16.0); Imm Gran Abs Auto 0.03 X10*3/uL (0.00-0.03); Imm Gran Pct Auto 0.5 % (0.0-0.4); Lymphocytes Absolute Auto 1.5 X10*3/uL (1.2-4.9); Mean Corpuscular HGB Conc 32.1 g/dl (31.0-35.0); Mean Corpuscular Hemoglobin 25.2 pg (27.0-33.0); Mean Corpuscular Volume 78.6 fL (80.0-98.0); NRBC Abs Auto 0.000 X10*3/uL (0.0-0.012); NRBC Pct Auto 0.0 /100WBC (0.0-0.2); Platelet Count 249 X10*3/uL (160-400); Red Blood Count 3.97 X10*6/uL (4.20-5.50); White Blood Count 6.6 X10*3/uL (4.8-10.8)
[2025-06-06 10:56] LABS: Alanine Aminotransferase 6 U/L (0-31); Albumin Level 3.2 g/dL (3.5-5.0); Alkaline Phosphatase 50 U/L (39-117); Anion Gap 10 (12-20); Aspartate Amino Transferase 16 U/L (5-31); Blood Urea Nitrogen 7 mg/dL (9-16); Calcium 8.6 mg/dL (8.4-10.2); Carbon Dioxide 22 mmol/L (22-29); Chloride 108 mmol/L (96-108); Creatinine Clr Calc Pharmacy 110.6; Estimated Glomerular Filt Rate > 60; Magnesium 1.7 mg/dL (1.6-2.6); Potassium 3.5 mmol/L (3.3-5.1); Sodium 136 mmol/L (135-145); Total Protein 6.3 g/dL (6.5-8.0)
[2025-06-06 12:12] VITALS: BP 120/64; PULSE 64; RESP 16; TEMP 37.1; O2SAT 99
== END 2025-06-06 12:14 | disposition short-term general hospital (02) ==
PROVIDERS: Emergency Provider Emergency Medicine
DX: O26.899 Other specified pregnancy related conditions, unspecified trimester (principal); O09.529 Supervision of elderly multigravida, unspecified trimester; R10.9 Unspecified abdominal pain; R05.9 Cough, unspecified
CPT/HCPCS: 36415; 80053; 83735; 84702; 85025; 99283; 99285